=== PATIENT | female | born 1980 | race Caucasian/White ===

== ENCOUNTER 2024-02-20 12:55 | Outpatient (CLI) | payer OTHER, SELFPAY ==
[2024-02-20 13:38] LABS: Hematocrit 38.1 % (37.0-47.0)
== END 2024-02-20 12:56 | disposition home or self-care (01) ==
LOC: ANHSURGERY 13:03
PROVIDERS: Anesthesiology; PCP Nurse Practitioner Family; Visit Provider Obstetrics & Gynecology
DX: D64.9 Anemia, unspecified (principal); D25.9 Leiomyoma of uterus, unspecified
CPT/HCPCS: 36415; 85014; 85018; 86850; 86900; 86901

== ENCOUNTER 2024-02-24 00:51 | Day surgery (SDC) | payer OTHER, SELFPAY ==
[2024-02-18 13:42] VITALS: BMI 43.0
--- NOTE | 2024-02-18 13:44 | PC.NURSE ---
Report to the Outpatient Waiting Room, entrance under the green pavilion located off [facility], at time _0700_ on date _[id number]_. Planned Procedure Time: _0900_. Time changes happen often and if your time is changed the preop area will call you the afternoon before. - You and your visitor will be asked to self-screen and do not enter if you have any COVID symptoms. - A mask is optional within the hospital at this time. Patients may have clear liquids (water, carbonated beverages, clear teas, apple juice) until 3 hours prior to surgery with a maximum of 20 ounces. - No food from midnight until time of surgery Take the following medications with a SIP of water the morning of surgery: __None DO NOT STOP ANY OF YOUR OTHER PRESCRIPTION MEDICATIONS PRIOR TO SURGERY ?EXCEPT THE FOLLOWING Medications to discontinue per physician Iron tab Date to take last [id number] Please no make-up, nail vincentian, hairspray, perfume, deodorant, or body powder the day of surgery. No jewelry (including any body piercings) or valuables the day of surgery, leave them at home. Please take a shower or bath the night before, or the morning of, surgery with an antibacterial soap. Wear comfortable, loose fitting clothing. - Jewelry must be removed prior to entering the operating room. Rings and piercings that are not removed may be cut off. - The hospital will not accept responsibility for valuables. - Please leave all valuables, including medications, at home the day of surgery. If you are going home after surgery, a licensed services delivery driver must drive you home. - NO public transportation without another adult if you receive anesthesia. - We recommend that an adult stay with you for 24 hours following discharge. - We also recommend that you do not drive, make important decision, drink alcoholic beverages, or take any drugs that were not prescribed by your health care provider for at least 24 hours after your discharge time. Follow any additional instructions given to you from your surgeon. If you or anyone in your household have experienced Covid symptoms in the past week, please notify your surgeon or the nurse liaison at the phone number below for possible testing. Telephone instructions given to __Melody___and asked if any additional questions and then verbalized understanding. Patient advised to call surgeon office or pre surgery nurse liaison [phone] if any additional questions.
[2024-02-24] VITALS (11 sets, daily range): BP systolic 112–168; BP diastolic 58–82; PULSE 69–108; RESP 12–20; TEMP 36.5–37.3; O2SAT 95–100; BMI 40.9
--- NOTE | 2024-02-24 07:28 | WPDHPUPDATE1 ---
History and Physical Update Update Date/Time: 02/24/24 07:28 History and Physical has been reviewed, including an updated exam of the patient. There are NO changes in the patient's condition. Risks, benefits, and alternatives have been discussed and questions answered. Patient agrees to proceed with procedure.
[2024-02-24] MEDS: ACETAMINOPHEN 500 MG TABLET 1000 MG PO (07:50)
[2024-02-24] MEDS: KETOROLAC 15 MG/ML VIAL (*BKC) IV PUSH (07:50)
--- NOTE | 2024-02-24 08:46 | P.PNAN_ITS ---
Anes - Initial Pre Proc Eval Procedure: Operation Date: 02/24/24 09:00 Proposed Procedures p Total Laparoscopic Hysterectomy with Bilateral Salpingectomy - Cade Francisco MD Date/Time: 02/24/24 08:46 Surgeon: Cade Francisco MD Pre Op Diagnosis: uterine leimyoma Patient Data Age: 43 Gender: F Height: 1.57 m Weight: 101.5 kg Last Vital Signs Temp 36.6 C 02/24/24 08:32 Pulse 69 02/24/24 08:32 Resp 16 02/24/24 08:32 BP 154/66 H 02/24/24 08:32 Pulse Ox 97 02/24/24 08:32 Allergies Allergy/AdvReac Type Severity Reaction Status Date / Time No Known Allergies Allergy Mild Verified 02/24/24 08:09 Home Medications Medication Instructions Recorded Confirmed Type ferrous sulfate 325 mg (65 mg 325 mg PO DAILY 02/18/24 02/24/24 History iron) tablet (FeroSul) norethindrone 1 mg-ethinyl 1 tablet PO DAILY 02/18/24 02/24/24 History estradiol 10 mcg (24)-iron 10 mcg(2) tablet (Lo Loestrin Fe) Patient hx anesthesia problems: none Family hx anesthesia problems: none Results Review: All pre-operative results and documents have been reviewed as part of the pre- operative evaluation. [facility] Past Medical History Medical History Healthy adult Surgical History Surgical History No history of previous surgery Family History Family History Grandparent Diabetes mellitus Social History Social History Smoking status: Never smoker Second hand tobacco smoke exposure: No Alcohol intake: never Living arrangements: with family Gender identity (if verbalized by the patient): Female Spiritual care concerns: No Anes - Eval Final PreProcedure Day of Procedure 02/24/24 08:46 Patient weight: morbidly obese Heart: regular rate and rhythm Lungs: clear to auscultation Airway: Mallampati scale class II Neurological: alert and oriented Last oral intake: >/= 8 hours ASA classification: III Emergent: no Anesthetic plan: proceed Anesthesia type and monitoring: general ETT and standard monitoring Results Review: All pre-operative results and documents have been reviewed as part of the pre-operative evaluation. Informed Consent: The patient's anesthetic plan and its attendant risks and benefits were discussed with the patient/family/POA. Questions were solicited and answers provided to the satisfaction of the patient/family/POA.
[2024-02-24] MEDS: ceFAZolin 2 GM/D5W 50 ML 2 GM/50 ML BAG IVPB (10:30)
[2024-02-24] MEDS: ceFAZolin SODIUM 1 GM VIAL (11:13)
[2024-02-24] MEDS: METHYLENE BLUE 0.5% INJ 10 ML AMPULE IRRIGATION (13:51)
--- NOTE | 2024-02-24 14:28 | W.PM.PROC2 ---
Procedure Note - Detailed Date of Procedure 02/24/24 Pre-op Diagnosis uterine leiomyoma Post-op Diagnosis Other (uterine leiomyoma, rectal laceration) Procedure Performed Laparoscopic repair of rectal laceration Surgeon Moris Ayers, DO Anesthesia General Indications This is a 43-year-old woman who I am called into the OR to evaluate intraoperatively for a potential rectal laceration. She was undergoing laparoscopic hysterectomy with Dr. Francisco. He noticed a rectal injury after removing the uterus. He did not identify any stool spillage or any definite full thickness injury but he was concerned that there is at least an injury to the serosa and mucosal layers. Findings I inspected the pelvis laparoscopically. The uterus was already surgically absent and the vaginal cuff had been closed. The rectum was identified and carefully inspected. Along the left anterior surface of the mid rectum there appeared to be a serosal injury with some exposed mucosal layer. I did not see any evidence of full-thickness injury or stool spillage. I carefully inspected the upper rectum and distal sigmoid colon as well and did not identify any other injuries. I chose to repair the laceration on the rectum using 3-0 Vicryl seromuscular imbricating sutures. A total of 2 sutures were placed and the repair appeared secure. I attempted rigid proctoscopy to perform a leak check, but the rectum was filled with stool and I was unable to adequately insufflate to check for any signs of an air leak. Please refer to Dr. Francisco's operative report for details of his portion of the procedure. Description of Procedure Patient was evaluated intraoperatively. Consent was assumed based on the nature of the procedure. The patient was in steep Trendelenburg position with laparoscopic ports already in place. I inspected the pelvis laparoscopically and paid particular attention to the rectum as it went down into the pelvis. Along the left anterior side of the rectum there did appear to be a serosal and mucosal injury. This measured about 5 mm wide. There did not appear to be any intraluminal entrance or any signs of stool spillage. No other injuries were noted with careful inspection laparoscopically. I then repaired the rectal laceration using 3-0 Vicryl seromuscular imbricating sutures placed laparoscopically using a laparoscopic needle miniature train driver. Two sutures were placed to approximate the laceration. The repair was then inspected and appeared secure. No other abnormalities were noted. I then filled the pelvis with saline and inserted a rigid proctoscope. Stool was visible as soon as the proctoscope was inserted. I attempted insufflating the rectum with air through the rigid proctoscope, but due to the amount of stool this was difficult to accomplish. The proctoscope was then removed. The saline was then suctioned and the pelvis was inspected 1 final time. No other abnormalities were noted. Please refer to Dr. Francisco's operative report for his portion of the surgery and closure. Estimated Blood Loss 1 Complications No immediate complications Condition Stable Disposition Floor [facility] Billing Surgery - Charge Forward: Surgery Billing
--- NOTE | 2024-02-24 15:03 | W.PM.PROC2 ---
Procedure Note - Detailed Date of Procedure 02/24/24 Pre-op Diagnosis uterine leimyoma, menorrhagia Post-op Diagnosis Same Procedure Performed Total laparoscopic hysterectomy.Bilateral salpingectomy Surgeon Cade Francisco MD Anesthesia General Indications menorrhagia Findings very large uterus with multiple uterine fibroids weighing approximately 800 g. Normal-appearing tubes and ovaries. 2 cm injury to the rectum the removal of the serosa and partial muscularis. Description of Procedure This patient was taken to the operating room. She was prepped and draped in the dorsal lithotomy position after induction of general anesthesia. The uterine manipulator and Sy cup were placed. This was done with a speculum and tenaculum. The speculum was placed. The cervix was grasped with a tenaculum. The stay sutures were placed at 3 and 9:00 a.m.. The stay sutures of 0 Vicryl were brought through the appropriately sized Sy cup. The tip of the PAMELA manipulator was placed in the intrauterine cavity. The cup was slid into place around the cervix and into the fornices. It was locked into place. The sutures were then wrapped around the handle and tied under tension. A 5 mm skin incision was made in the left upper quadrant the abdomen. A 5 mm trocar was inserted into the intrauterine cavity under direct visualization of the scope. Pneumoperitoneum was achieved. A left lower quadrant 11 mm incision was made with scalpel. An 11 mm trocar was inserted into the anterior abdominal cavity under direct visualization the scope. A 5 mm infraumbilical incision was made with a scalpel and a 5 mm trocar was inserted the intra-abdominal cavity under direct visualization of the scope. Left side ureteral lysis was performed. This was done from the pelvic brim down to the uterine artery. This was done with careful dissection using sharp and blunt dissection. The fallopian tubes were removed bilaterally. The mesosalpinx around the fallopian tubes were cauterized transected with LigaSure cautery. This was done in a bilateral fashion from the ovary to the uterine cornua. The fallopian tube was transected at the uterine cornu and amputated bilaterally. The tube was taken out the left lower quadrant trocar site. In a stepwise fashion along the lateral aspects of the uterus the round ligament and broad ligaments were cauterized transected down to the level of the uterine arteries. A bladder flap was created in the bladder was moved distally to the end of the cervix and over the Sy cup. The bilateral uterine arteries were cauterized and transected. Colpotomy was then performed. In a circumferential fashion the vagina was transected using unipolar cautery. The incision was made down on the Sy cup. when the colpotomy was completed. A pneumo occluder was placed in the vagina. the large uterus was cut into 3 pieces using unipolar cautery. A 4th trocar was placed on the patient's right side in left lower quadrant. this is used to apply traction to the very large uterus was cut with unipolar cautery. The dental assistant teacher pushed piece of the uterus down to the vaginal cuff they were grasped with a tenaculum. For 1 of the pieces the rectum was also pushed to the opening. It was superficially grasped with a tenaculum. It was then let go. the remainder of the uterus was removed. Pneumo occluder was replaced. The vaginal cuff was closed with a 0 V lock suture in a running fashion. The pelvis was irrigated with copious amounts antibiotic irrigation. The ureters were again examined and found to be intact and flowing freely under the uterine arteries into the bladder. The bladder was intact. It was examined directly. The rectum was examined. The defect was observed. Dr. Hallman was called for repair. See his note. It required 2 sutures. The rectum was then checked for integrity with proctoscope and air test. No Air passed out of the rectum. Cystoscopy was pe
[2024-02-24] MEDS: LACTATED RINGERS 1,000 ML 30 ML IV CONT ×3 (15:10)
[2024-02-24] MEDS: fentaNYL CITRATE INJ (*CRX) 100 MCG/2 ML VIAL 25 MCG IV PUSH ×2 (15:47→15:50)
--- NOTE | 2024-02-24 16:45 | PC.NURSE ---
This patient, Melody Looney, was received from PACU on 02/24/24 at 1645. Patient/family oriented to unit policies and routines
[2024-02-24] MEDS: DEXTROSE 5%/0.45% SOD CHL 1,000 ML 125 ML IV CONT (16:49)
[2024-02-24] MEDS: KETOROLAC 30 MG/ML VIAL (*BKC) IV PUSH ×2 (17:14→23:33)
[2024-02-24] MEDS: SIMETHICONE 80 MG TAB.CHEW PO ×2 (17:15→21:09)
[2024-02-25 03:20] VITALS: BP 137/71; PULSE 88; RESP 18; TEMP 37.1; O2SAT 96
--- NOTE | 2024-02-25 07:38 | PM.GYNPNOP ---
POLISHING MACHINE TENDER - A/P Postoperative Procedures: Procedures Operation Date: 02/24/24 09:00 Actual Procedure Side Surgeon p Total Laparoscopic Hysterectomy with Bilateral Salpingectomy Bilateral Cade Francisco MD s Laparoscopic Repair of Rectal Laceration Not Applicable Moris Ayers DO Postoperative day: 1 Postoperative status: doing well Postoperative plan: see orders Time Spent With Patient Time: Total time spent is greater than 50% in coordination of care (as documented) at patient's floor/unit and/or counseling patient: Time with patient: less than 15 minutes POLISHING MACHINE TENDER- PN:Subj Post-Op Subjective Date/time seen: 02/25/24 07:38 Subjective: patient reports feeling better, patient has no complaints and pain is well controlled Exam Const: General: cooperative, healthy appearing, comfortable and no acute distress Resp: Auscultation: no crackles, no rales, no rhonchi and no wheezes Cardio: Rate: regular rate Rhythm: regular rhythm Heart sounds: no click and no murmurs GI: Inspection: non-distended Auscultation: normal bowel sounds Extrem: General: normal to inspection, no pedal edema and no calf tenderness POLISHING MACHINE TENDER - PN: Obj Data Vital Signs Vital Signs: Vital Signs - 24 hr 02/24/24 08:32 02/24/24 15:10 02/24/24 15:25 Temperature 97.8 F 98.1 F Pulse Rate 69 108 H 93 Respiratory Rate 16 15 12 Blood Pressure 154/66 H 168/82 H 146/69 H Pulse Oximetry 97 100 100 Oxygen Delivery Simple Face Mask Simple Face Mask Oxygen Flow Rate 10 10 02/24/24 15:40 02/24/24 15:50 02/24/24 15:55 Temperature Pulse Rate 89 90 Respiratory Rate 15 14 Blood Pressure 143/77 H 131/58 L Pulse Oximetry 100 97 95 Oxygen Delivery Simple Face Mask Room Air Room Air Oxygen Flow Rate 10 02/24/24 16:10 02/24/24 16:25 02/24/24 16:55 Temperature 97.7 F Pulse Rate 83 78 81 Respiratory Rate 12 12 16 Blood Pressure 126/72 112/79 123/64 Pulse Oximetry 96 95 97 Oxygen Delivery Room Air Room Air Oxygen Flow Rate 02/24/24 19:45 02/24/24 23:25 02/25/24 03:20 Temperature 98.1 F 99.1 F 98.8 F Pulse Rate 84 79 88 Respiratory Rate 18 20 18 Blood Pressure 121/65 136/70 137/71 Pulse Oximetry 98 99 96 Oxygen Delivery Oxygen Flow Rate Intake/Output Intake/Output: Intake & Output 02/22/24 02/23/24 02/24/24 02/25/24 23:59 23:59 23:59 23:59 Intake Total 250 1000 Output Total 150 1550 Balance 100 -550 Meds/Results Medications: Active Medications Generic Name Dose Route Start Last Admin Trade Name Freq PRN Reason Stop Dose Admin Hydrocodone Bitart/Acetaminophen 1 tab 02/24/24 16:36 Hydrocodone/Acetaminophen (*Crx) 5-325 Mg Tablet PO Q3H PRN Pain Rated 5 or Less Hydrocodone Bitart/Acetaminophen 1 tab 02/24/24 16:36 Hydrocodone/Acetaminophen (*Crx) 10-325 Mg Tablet PO Q3H PRN Pain Rated 6 or Greater Enoxaparin Sodium 40 mg 02/25/24 09:00 Enoxaparin 40 Mg/0.4 Ml Syringe SUB-Q DAILY RIVERA Ibuprofen 600 mg 02/24/24 16:36 Ibuprofen 600 Mg Tablet PO Q6H PRN Cramping Ketorolac Tromethamine 30 mg 02/24/24 16:36 02/24/24 23:33 Ketorolac 30 Mg/Ml Vial (*Bkc) IV PUSH 02/29/24 16:35 30 mg Q6H PRN Administration Pain Rated 4-6 Naloxone HCl 0.1 mg 02/24/24 16:36 Naloxone Hcl 0.4 Mg/Ml Vial IV PUSH Q2M PRN Respiratory rate less than 10 Ondansetron HCl 4 mg 02/24/24 16:36 Ondansetron Inj 4 Mg/2 Ml Vial IV PUSH Q6H PRN Nausea And Vomiting Simethicone 80 mg 02/24/24 17:00 02/24/24 21:09 Simethicone 80 Mg Tab.Chew PO 80 mg TIDWM RIVERA Administration
[2024-02-25] MEDS: IBUPROFEN 600 MG TABLET PO (07:43)
[2024-02-25 08:45] VITALS: BP 140/59; PULSE 76; RESP 16; TEMP 37.1; O2SAT 98
[2024-02-25] MEDS: ENOXAPARIN 40 MG/0.4 ML SYRINGE SUB-Q (08:58)
== END 2024-02-25 11:10 | disposition home or self-care (01) ==
LOC: ANHSURGERY 06:49 → ANHOB2 16:38
PROVIDERS: Surgery; PCP Nurse Practitioner Family; Visit Provider Obstetrics & Gynecology
PROC: 0UT9FZZ Resection of Uterus, Via Natural or Artificial Opening With Percutaneous Endoscopic Assistance (ICD-10-PCS; CPT 58573; principal; 2024-02-24 09:00)
PROC: (CPT 45999; 2024-02-24 09:00)
DX: N83.8 Other noninflammatory disorders of ovary, fallopian tube and broad ligament (principal); D25.9 Leiomyoma of uterus, unspecified; D64.9 Anemia, unspecified; E66.01 Morbid (severe) obesity due to excess calories; Z68.41 Body mass index [BMI] 40.0-44.9, adult; Z98.51 Tubal ligation status; Z80.1 Family history of malignant neoplasm of trachea, bronchus and lung
CPT/HCPCS: 58573; 45999; 88307; 99199; A9270; J0690; J1100; J1170; J1650; J1885; J1940; J2250; J2405; J2704; J3010; J7030; J7120; Q9968

== ENCOUNTER 2024-03-03 19:10 | Inpatient (IN) | payer OTHER, SELFPAY ==
--- NOTE | ~2024-03-03 | CT_ITS ---
EXAMINATION: CT pelvis w con DATE: 03/08/2024 13:45 INDICATION: Pelvic abscess TECHNIQUE: Computed tomography (CT) of the pelvis was performed without with 100 mL Omnipaque-350 int ravenous contrast. Automated exposure control and iterative reconstruction technique were employed.Th e dose-length product was 154.80 mGy-cm. Imaging was performed initially a field engineer for a planned percut aneous abscess drain placement. Following review of the images the planned abscess drainage catheter was canceled due to interval resolution of the prior pelvic abscess. COMPARISON: 03/06/2024 FINDINGS: Bladder is normal. The uterus has been resected. The previous noted pelvic abscess at the uterine fos sa which measured 4.6 x 1.9 x 3.7 cm on 03/03/2024 and 4.1 x 1.8 x 3.5 cm on 03/06/2024 has nearly comple tely resolved currently measuring 11 x 10 x 10 mm. No other abscesses, free intraperineal gas or flui d identified. Visualized portions of the bowels are normal with no obstruction. No pathologically enl arged pelvic or inguinal lymphadenopathy. Bones are unremarkable. IMPRESSION: 1. Near complete resolution of a prior pelvic abscess at the uterine fossa now measuring 11 mm in max imal diameter. Given the significant improvement and current diminutive size of the remaining cavity the planned drainage catheter placement was deferred. Reviewed, dictated and finalized at location A. IMPRESSION: 1. Near complete resolution of a prior pelvic abscess at the uterine fossa now measuring 11 mm in maximal diameter. Given the significant improvement and curr ent diminutive size of the remaining cavity the planned drainage catheter place ment was deferred.
--- NOTE | ~2024-03-03 | CT_ITS ---
CT abdomen pelvis w con Ordering provider: Bhupendra Card MD History: 44 years Female with . ABd pain, r/o SBO . Comparison: August 18, 2019 Technique: CT abdomen and pelvis with IV and without oral contrast. Automated exposure control and it erative reconstruction technique were employed. The dose-length product was 1420.01 mGy-cm. 100 mL Om nipaque 350 was given IV. Findings: VISUALIZED LOWER CHEST: Normal. UPPER ABDOMINAL ORGANS: Liver: Normal. Gallbladder: Normal. Spleen: Normal. Stomach/duodenum: Normal. Pancreas: Normal. Adrenals: Normal. Kidneys: Normal. PELVIC ORGANS: The bladder is underfilled. Surrounding fat stranding seen with thickened wall. BOWEL AND MESENTERY: Colon: Fat stranding in the pelvis with collection in the pelvis which measures 4.6 x 1.9 CNM. Which is most likely post diverticulitis. The appendix is not demonstrated. Small Bowel: Normal. No obstruction. Peritoneum/mesentery: No free air. No mesenteric lymphadenopathy. RETROPERITONEUM: Normal aorta. No retroperitoneal lymphadenopathy. MUSCULOSKELETAL: Superficial soft tissues: The superficial soft tissues are normal. Bones: Normal spine. IMPRESSION: 1. Highly suggestive sigmoid diverticulitis with abscess seen in the pelvis. 2. Thickened wall of the urinary bladder with cystitis. Reviewed, dictated and finalized at location A.
--- NOTE | ~2024-03-03 | XR_ITS ---
EXAMINATION: XR abdomen obstructive series DATE: 03/05/2024 10:11 INDICATION: Constipation. TECHNIQUE: Upright and supine views of the abdomen on 4 radiographs were obtained. COMPARISON: CT abdomen and pelvis 03/03/2024 FINDINGS: There are no dilated loops of bowel. There is a paucity of stool in the colon. No free intr aperitoneal gas. There are phleboliths in the pelvis. IMPRESSION: 1. Normal bowel gas pattern. Reviewed, dictated and finalized at location A.
--- NOTE | ~2024-03-03 | CT_ITS ---
EXAMINATION: CT abdomen pelvis w con DATE: 03/06/2024 14:47 INDICATION: possible pelvic abscess; bacteremic TECHNIQUE: Computed tomography (CT) of the abdomen and pelvis was performed with 100 mL Omnipaque-350 intravenous contrast. Automated exposure control and iterative reconstruction technique were employe d. The dose-length product was 1358.25 mGy-cm. COMPARISON: 03/03/2024. FINDINGS: Lower thorax: Unremarkable Liver: Normal. Biliary/Gallbladder: Gallbladder is normal. No bile duct dilation. Pancreas: No mass or duct dilation. Spleen: Normal. Adrenals:No mass. Kidneys: No suspicious mass, obstructing stone, or hydronephrosis. Subcentimeter right renal hypodens ities, too small to characterize, but most likely represent cysts. GI tract: No small or large bowel dilation. Appendix not visualized. Mesentery/Peritoneum: No ascites, mass, or free air. Retroperitoneum: No mass. Pelvis: The urinary bladder is empty, with moderate surrounding inflammatory change. Irregular slight ly bilobed appearing 4.4 x 5.6 cm rim-enhancing fluid collection at the vaginal cuff, marginally decr eased surrounding inflammatory change and very slight decrease in size since the prior study by my me asurements. Soft Tissues: Soft tissues and body wall unremarkable. Bones: No acute osseous finding. IMPRESSION: Pelvic abscess, very slight interval decrease in size and decreased inflammation, otherwise unchanged . Cystitis versus reactive change in the urinary bladder. No other acute abdominopelvic process. Reviewed, dictated and finalized at location K. IMPRESSION: Pelvic abscess, very slight interval decrease in size and decreased inflammatio n, otherwise unchanged. Cystitis versus reactive change in the urinary bladder. No other acute abdominopelvic process.
--- NOTE | ~2024-03-03 | US_ITS ---
EXAMINATION: US venous doppler [facility] DATE: 03/05/2024 14:56 INDICATION: Lower limb pain with positive Homans sign post recent surgery TECHNIQUE: Grayscale ultrasound images without and with compression and Doppler ultrasound images of the bilateral lower extremity veins were obtained. COMPARISON: None. FINDINGS: The visualized portions of right common femoral vein, profunda (deep) femoral vein, femoral vein, pop liteal vein, posterior tibial veins, peroneal veins, gastrocnemius vein and greater saphenous vein ou tflow are patent. The visualized portions of left common femoral vein, profunda femoral vein, femoral vein, popliteal v ein, posterior tibial veins, peroneal veins, gastrocnemius vein and greater saphenous vein outflow ar e patent. IMPRESSION: 1. No deep venous thrombosis in either lower limb. Reviewed, dictated and finalized at location B.
[2024-03-03 19:11] VITALS: BP 147/80; PULSE 110; RESP 16; TEMP 36.4; O2SAT 95
[2024-03-03 20:56] LABS: Basophils Absolute Auto 0.1 K/mm3 (0.0-0.1); Basophils Percent Auto 0.4 % (0.2-1.2); Eosinophils Percent Auto 0.2 % (0-4.4); Hematocrit 37.5 % (37.0-47.0); Hemoglobin 13.3 g/dL (12.0-15.0); Immature Granulocyte Absolute 0.05 K/mm3 (0.00-0.031); Immature Granulocyte Percent A 0.4 % (0-0.5); Lymphocytes Absolute Auto 1.36 K/mm3 (0.9-3.2); Lymphocytes Percent Auto 11.3 % (18.3-44.2); Mean Corpuscular HGB Conc 35.5 g/dl (32-36); Mean Corpuscular Hemoglobin 31.9 pg (26-34); Mean Corpuscular Volume 89.9 fl (80-100); Mean Platelet Volume 9.6 fl (7.4-10.4); Monocytes Absolute Auto 1.6 K/mm3 (0.1-0.6); Neutrophils Percent Auto 74.7 % (45.5-73.1); Platelet Count Result 318 k/mm3 (150-375); Red Blood Count 4.17 M/mm3 (4.2-5.4); Red Cell Distribution Width 12.2 % (11.5-14.5)
--- NOTE | 2024-03-03 21:00 | ED.ABDPAIN ---
HPI - Abdominal Pain General Chief Complaint: Abdominal Pain <IWONA Sewell Last Filed: 03/04/24 00:11> Stated Complaint: constipation <IWONA Sewell Last Filed: 03/04/24 00:11> Time Seen by Provider: 03/03/24 20:38 <IWONA Sewell Last Filed: 03/04/24 00:11> Source: patient and old records reviewed <IWONA Sewell Last Filed: 03/04/24 00:11> Mode of arrival: ambulatory <IWONA Sewell Filed: 03/04/24 00:11> Limitations: no limitations <IWONA Sewell Last Filed: 03/04/24 00:11> History of Present Illness HPI narrative: Patient is a 44 y/o female who presents to the ED with c/o abdominal pain and constipation. Patient reports she underwent hysterectomy with Dr. Francisco on 02/23. Complicated by rectal laceration, repaired in the OR by Dr. Ayers. Patient reports since her surgery, she has not had a bowel movement. She is not currently on any opioid pain medication. Unclear of when her last bowel movement actually was. She has been taking milk of magnesia, but denies improvement. Reports only watery discharge from her anus. Reports intermittent lower abdominal pain, lower back pain, nausea with eating, denies vomiting. Denies fevers. She does report mild dysuria and burning in her vagina with urination. She believes she may have UTI. <IWONA Sewell Last Filed: 03/04/24 00:11> Related Data Home Medications: Home Medications Medication Instructions Recorded Confirmed No Home Medications 03/03/24 03/03/24 <IWONA Sewell Last Filed: 03/04/24 00:11> Allergies/Adverse Reactions: Allergies Allergy/AdvReac Type Severity Reaction Status Date / Time No Known Allergies Allergy Mild Verified 03/03/24 19:11 <IWONA Sewell Last Filed: 03/04/24 00:11> Review of Systems Review of Systems: CONSTITUTIONAL: Denies fever, chills, or sweats. GASTROINTESTINAL: See HPI GENITOURINARY: See HPI MSK: See HPI <Isha Muñoz PA-C - Last Filed: 03/04/24 00:11> All systems reviewed & are unremarkable except as noted in HPI and below <Isha Muñoz PA-C - Last Filed: 03/04/24 00:11> [facility] Past Medical History Medical History: Medical History Healthy adult <Isha Muñoz PA-C - Last Filed: 03/04/24 00:11> Surgical History Surgical History: Surgical History No history of previous surgery <Isha Muñoz PA-C - Last Filed: 03/04/24 00:11> Family History Family History: Family History Grandparent Diabetes mellitus <Isha Muñoz PA-C - Last Filed: 03/04/24 00:11> Social History Social History: Social History Smoking status: Never smoker Second hand tobacco smoke exposure: No Alcohol intake: never Substance use type: does not use Do You Feel Safe in your Home?: Yes Lack of Transportation: No Lack of Food: Never True Current Housing: I Have Housing Concerned About Future Housing: No Difficulty Paying Gas/Electric Bills: No Difficulty Paying for Meds: No Currently Unemployed: No Education: Don't Know Difficulty w/ Childcare or Family Care: No Living arrangements: with family Gender identity (if verbalized by the patient): Female Spiritual care concerns: No <Isha Muñoz PA-C - Last Filed: 03/04/24 00:11> Exam Narrative: GENERAL: Well appearing, morbidly obese with BMI 40.0, non-toxic, in no acute distress. HEAD: Normocephalic, atraumatic. RESPIRATORY: Airway patent, respirations nonlabored. Clear to auscultation bilaterally, no rales, rhonchi, wheezing. CARDIOVASCULAR: Regular rate and rh
[2024-03-03 21:06] LABS: Alanine Aminotransferase 29 U/L (6-35); Albumin Level 4.5 g/dL (3.5-5.1); Alkaline Phosphatase 78 U/L (38-126); Anion Gap 9 mmol/L (4-12); Aspartate Amino Transferase 21 U/L (14-36); Bilirubin,Total 0.8 mg/dL (0.2-1.3); Blood Urea Nitrogen 9 mg/dL (7-17); Calcium 9.3 mg/dL (8.4-10.2); Carbon Dioxide 25 mmol/L (22-30); Chloride 102 mmol/L (98-107); Estimated CRCL calculation 95 ml/min; Estimated Glomerular Filt Rate > 60; Glucose 122 mg/dL (65-110); Lipase 26 U/L (23-300); Magnesium 2.2 mg/dL (1.6-2.3); Potassium 3.9 mmol/L (3.4-5.0); Sodium 136 mmol/L (137-145)
[2024-03-03 21:07] LABS: Lactic Acid Reflex 0.9 mmol/L (0.7-2.0)
[2024-03-03] MEDS: SODIUM CHLORIDE 0.9% IV 1,000 ML 999 ML IV CONT ×2 (21:11→22:52)
[2024-03-03 21:32] VITALS: BP 149/75; PULSE 96; RESP 15; O2SAT 98
[2024-03-03 22:04] LABS: Appearance Urine Turbid (Clear); Bacteria Urine 4+ /hpf; Bilirubin Urine 1+ (Negative); Blood Urine 3+ (Negative); Color Urine Dark Yellow (Yellow); Glucose Urine UA Negative (Negative); Ketones Urine Trace mg/dL (Negative); Leukocyte Esterase Ur 2+ LEU/UL (Negative); Need Manual Microscopic Reviewed; Nitrate Urine Negative (Negative); Protein Urine 3+ mg/dL (Negative); RBC Urine >100 /hpf (0-2); Specific Grav Ur 1.028 (1.001-1.035); Squamous Epithelial Cell Urine Moderate /hpf (Few); Urobilinogen Urine 0.2 mg/dL (<2.0); WBC Urine >100 /hpf (0-3); pH Urine 5.5 (5.0-9.0)
[2024-03-03 22:13] LABS: Add Urine Microscopic? YES
[2024-03-03] MEDS: PIPERACILLN/TAZ 3.375GM/NS50ML 3.375 GM/50 ML BAG IVPB (22:52)
[2024-03-03 23:27] VITALS: BP 137/80; PULSE 88; RESP 15; O2SAT 100
[2024-03-03 23:42] VITALS: BMI 39.9
[2024-03-03 23:44] VITALS: BP 163/72; PULSE 93; RESP 16; TEMP 37; O2SAT 100; BMI 41.1
--- NOTE | 2024-03-03 23:49 | ADMGEN ---
This patient, Melody Looney, was admitted to [facility] Surg Room 303-01. Patient/family oriented to hospital policies and general routines including ID bracelet, bed and alarms, visiting hours, pain management, procedures, bathroom and other care routines, personal items, smoking policy, room service/diet, and visiting hours. Information on how to activate the Rapid Response Team has been discussed. Patient/Family are encouraged to report perceived risks to care and to ask questions if they do not understand what they are told or what they should do.
[2024-03-04] MEDS: SODIUM CHLORIDE 0.9% IV 1,000 ML 100 ML IV CONT ×3 (00:09→22:20)
[2024-03-04] MEDS: PIPERACILLN/TAZ 3.375GM/NS50ML 3.375 GM/50 ML BAG IVPB ×4 (05:44→23:45)
[2024-03-04 05:47] VITALS: BP 129/57; PULSE 100; RESP 14; TEMP 37.5; O2SAT 96
[2024-03-04 06:07] LABS: Basophils Percent Auto 0.3 % (0.2-1.2); Eosinophils Percent Auto 0.4 % (0-4.4); Hematocrit 33.2 % (37.0-47.0); Immature Granulocyte Absolute 0.04 K/mm3 (0.00-0.031); Immature Granulocyte Percent A 0.4 % (0-0.5); Lymphocytes Absolute Auto 1.05 K/mm3 (0.9-3.2); Lymphocytes Percent Auto 11.1 % (18.3-44.2); Mean Corpuscular HGB Conc 33.1 g/dl (32-36); Mean Corpuscular Volume 93.5 fl (80-100); Mean Platelet Volume 9.8 fl (7.4-10.4); Monocytes Absolute Auto 1.3 K/mm3 (0.1-0.6); Neutrophils Percent Auto 73.8 % (45.5-73.1); Platelet Count Result 263 k/mm3 (150-375); Red Blood Count 3.55 M/mm3 (4.2-5.4); Red Cell Distribution Width 12.2 % (11.5-14.5); White Blood Count 9.4 K/mm3 (4.5-10.0)
[2024-03-04 06:17] LABS: Lactic Acid Reflex 0.7 mmol/L (0.7-2.0)
[2024-03-04 06:19] LABS: Anion Gap 9 mmol/L (4-12); Blood Urea Nitrogen 7 mg/dL (7-17); Calcium 8.1 mg/dL (8.4-10.2); Carbon Dioxide 22 mmol/L (22-30); Chloride 105 mmol/L (98-107); Estimated CRCL calculation 111 ml/min; Estimated Glomerular Filt Rate > 60; Glucose 108 mg/dL (65-110); Magnesium 1.9 mg/dL (1.6-2.3); Potassium 3.6 mmol/L (3.4-5.0); Sodium 136 mmol/L (137-145)
[2024-03-04 06:43] LABS: Procalcitonin 0.1 ng/mL
--- NOTE | 2024-03-04 08:48 | PM.IMHP ---
H&P: HPI History of Present Illness Date/Time: 03/04/24 08:48 Chief Complaint: Constipation Narrative: Melody Looney is a 44-year-old healthy female with history of uterine fibroids who underwent total laparoscopic hysterectomy with bilateral salpingectomy on 02/24/[address] Francisco. The procedure was complicated by rectal laceration and patient underwent intraoperative laparoscopic rectal laceration repair by Dr. Ayers. She tolerated this procedure well and was discharged home on 02/25/2024. Her pain was well controlled and she states that she did not require any of the oxycodone that she was prescribed for analgesics. She did notice about 4-5 days later, she had not had a bowel movement whatsoever. She was developing nausea and abdominal pressure with eating. She took a dose of milk of magnesia and only had a small amount of completely liquid yellow stool. A few days later, she developed severe central low back pain which she rated 10/10 with associated nausea and rectal pressure. She drank a bottle of magnesium citrate and only had a scant amount of loose, watery stool following this. She felt that she had hard stool that was stuck in the rectum and was leaking liquid stools around this. She had abdominal pressure associated with this. Denied fever, chills, or vomiting. She was concerned that she might have developed a blockage, therefore presented to the emergency department on 03/03/2024. Upon arrival, she was mildly tachycardic with additional vital signs stable, WBC within normal limits at 9.4, H&H slightly decreased, 11.0 and 33.2 respectively, electrolytes within normal limits, lipase within normal limits, lactic within normal limits, UA grossly abnormal concerning for infection. A CT of her abdomen/pelvis was completed which showed findings highly consistent with acute sigmoid diverticulitis with pelvic abscess as well as cystitis. At the time of my evaluation, the patient is feeling about the same. She is still having abdominal and back pressure and has not had any stools. She does complain of headache which she attributes to the stress of her situation. She also reports onset of vaginal burning that is improved with an ice pack as well as dysuria and dark brown urine. She denies any episodes of hematuria. She denies hematochezia or melena, though notes that yesterday she had a very faint red streak in the toilet after trying to have a bowel movement. She states that she has been overall recovering well from her surgery and denies any incisional pain. She has been tolerating her diet for the most part. She admits to poor water intake overall. Review of Systems Review of Systems: All systems reviewed & are unremarkable except as noted in HPI and below PMFSH Past Medical History Medical History (Updated 03/04/24 @ 09:03 by Anne Cardenas PA-C) Healthy adult Leiomyoma Surgical History Surgical History (Updated 03/04/24 @ 08:58 by Anne Cardenas PA-C) History of hysterectomy (~03/2024) Family History Family History Grandparent Diabetes mellitus Social History Social History (Updated 03/04/24 @ 08:59 by Anne Cardenas PA-C) Social History: Lives at home with her , Phillip who is her surrogate decision maker. PCP is Dr. Hicks Smoking status: Never smoker Second hand tobacco smoke exposure: No Alcohol intake: never Substance use type: does not use Do You Feel Safe in your Home?: Yes Lack of Transportation: No Lack of Food: Never True Current Housing: I Have Housing Concerned About Future Housing: No Difficulty Paying Gas/Electric Bills: No Difficulty Paying for Meds: No Currently Unemployed: No Education: Don't Know Difficulty w/ Childcare or Family Care: No Living arrangements: with family Gender identity (if verbalized by the patient): Female Spiritual care concerns: No Meds Home Medications
[2024-03-04] MEDS: PANTOPRAZOLE SODIUM IV 40 MG VIAL IV PUSH (09:15)
--- NOTE | 2024-03-04 10:55 | WPDCN ---
Assessment and Plan Assessment and plan (1) Intra-abdominal abscess post-procedure: Code(s): T81.43XA - Infection following a procedure, organ and space surgical site, initial encounter; K65.1 - Peritoneal abscess Status: Acute Assessment and Plan: I think is difficult to definitively say that the fluid collection in the pelvis is definitely an abscess given her recent surgery 9 days a hysterectomy. Still the difference between diverticulitis and postsurgical changes with a small fluid collection. The fluid collection may be infected but presently is not has not have a rim enhancing wall to suggest an abscess. For now will continue to treat with IV antibiotics and NPO status. Clinically she does not look to be septic. If she continues to get worse in any way then repeat CT scan possible IR drainage of the fluid collection would be reasonable. Continue expectant management for now. HPI Data of Consult Date/Time: 03/04/24 10:55 Requesting Physician: Olya Mcdaniels MD Primary Care Provider: Arron Hicks, PRINCIPAL LAW CLERK Consult Narrative Reason for consult: Pelvic pain and possible pelvic abscess Narrative: Melody Looney is a 44 year old female who underwent a laparoscopic hysterectomy by Dr. Francisco 9 days ago. There was a serosal tear in the midportion of the right eye partner Dr. Ayers repaired with laparoscopic placement of 2 Vicryl sutures to close the serosal tear. No full-thickness in seen and no spillage of any bowel contents was noted. The patient has had constipation and was unable to have bowel movements. She was having urine pain and in the emergency room she was noted to have with the radiologist called diverticulitis and a 4cm abscess in the pelvis. She was hemodynamically stable and admitted to the hospital and started on IV antibiotics. White blood cell count was initially 12,000 is down to 9000 today. No fever. She has been having some liquid diarrhea which is nonbloody. She took some magnesium citrate yesterday which did not really resulted in a large bowel movements. She has not been eating very much solid food since her surgery. No nausea vomiting home. Review of Systems Review of Systems: The remainder of the review of systems to include constitutional, HEENT, cardiovascular, respiratory, GI, , integumentary, musculoskeletal, endocrine, immunologic, hematologic, psychiatric, and neurologic are all negative except for which is mentioned above in the HPI. [facility] Past Medical History Medical History Healthy adult Leiomyoma Surgical History Surgical History History of hysterectomy (~03/2024) Family History Family History Grandparent Diabetes mellitus Social History Social History Social History: Lives at home with her , Phillip who is her surrogate decision maker. PCP is Dr. Hicks Smoking status: Never smoker Second hand tobacco smoke exposure: No Alcohol intake: never Substance use type: does not use Do You Feel Safe in your Home?: Yes Lack of Transportation: No Lack of Food: Never True Current Housing: I Have Housing Concerned About Future Housing: No Difficulty Paying Gas/Electric Bills: No Difficulty Paying for Meds: No Currently Unemployed: No Education: Don't Know Difficulty w/ Childcare or Family Care: No Living arrangements: with family Gender identity (if verbalized by the patient): Female Spiritual care concerns: No Meds Home Medications and Allergies Home Medications Medication Instructions Recorded Confirmed Type No Home Medications 03/03/24 03/03/24 History Allergies Allergy/AdvReac Type Severity Reaction Status Date / Time No Known Allergies Allergy Mild Verified 03/03/24 19:11 Vital S
--- NOTE | 2024-03-04 11:19 | WPDCN ---
Assessment and Plan Assessment and plan (1) Post-op pain: Code(s): G89.18 - Other acute postprocedural pain Status: Acute (2) Constipation: Code(s): K59.00 - Constipation, unspecified Status: Acute (3) Pelvic fluid collection: Code(s): R18.8 - Other ascites Status: Acute Assessment and Plan: Melody Looney is a 44 year old female Who presented to the emergency department with postoperative pelvic pain and constipation. She feelings of pressure in her rectal area. She is 1 week postop from a total laparoscopic hysterectomy and bilateral salpingectomy. She had a large uterus was taken out in strips. During removal of the strips the rectum was grasped and a serosal and muscularis tear occurred. It was repaired by Dr. Hallman. she was evaluated in the emergency department. CT scan revealed a small fluid collection in the pelvis. There was suggestion of diverticulitis which is difficult to infer in the context of postoperative healing. Patient was afebrile. She had a very little mildly elevated white count initially which resolved after observation. She is being treated with antibiotics. Consideration of CT-guided drainage of the fluid collection or transvaginal drainage of fluid collection and has been discussed between myself and Dr. Nance. Dr. Nance feels that antibiotics and observation probably the best approach at this time. Will continue observation and antibiotic treatment. HPI Data of Consult Date/Time: 03/04/24 11:19 Requesting Physician: Olya Mcdaniels MD Primary Care Provider: Arron Hicks, AEROSPACE ENGINEER Consult Narrative Narrative: Melody Looney is a 44 year old female Who presented to the emergency department with postoperative pelvic pain and constipation. She feelings of pressure in her rectal area. She is 1 week postop from a total laparoscopic hysterectomy and bilateral salpingectomy. She had a large uterus was taken out in strips. During removal of the strips the rectum was grasped and a serosal and muscularis tear occurred. It was repaired by Dr. Hallman. she was evaluated in the emergency department. CT scan revealed a small fluid collection in the pelvis. There was suggestion of diverticulitis which is difficult to infer in the context of postoperative healing. Patient was afebrile. She had a very little mildly elevated white count initially which resolved after observation. She is being treated with antibiotics. Consideration of CT-guided drainage of the fluid collection or transvaginal drainage of fluid collection and has been discussed between myself and Dr. Nance. Dr. Nance feels that antibiotics and observation probably the best approach at this time. Will continue observation and antibiotic treatment. Review of Systems Review of Systems: All systems reviewed & are unremarkable except as noted in HPI and below Constitutional: Constitutional: Denies chills, Denies fatigue, Denies fever(s) and Denies weakness Eyes: Eyes: Denies blurry vision, Denies change in vision, Denies loss of peripheral vision, Denies loss of vision, Denies other visual disturbances and Denies eye pain ENT: Denies vertigo, Denies dizziness, Denies hearing loss, Denies mouth pain, Denies nasal obstruction, Denies neck mass and Denies neck pain Cardiovascular: Cardiovascular: Denies chest pain, Denies diaphoresis, Denies syncope, Denies leg edema and Denies dyspnea Respiratory: Respiratory: Denies chest congestion, Denies cough, Denies hemoptysis, Denies dyspnea and Denies wheezing Gastrointestinal: Gastrointestinal: Denies abdominal pain, Denies constipation, Denies diarrhea, Denies nausea and Denies vomiting Genitourinary: Genitourinary: Denies hematuria, Denies change in libido, Denies nocturia, Denies genital lesions, Denies flank pain and Denies urinary urgency Musculoskeletal: Musculoskeletal: Denies abnormal gait, Denies back pain, Denies myalgias, Denies arthralgias, Russell
[2024-03-04 14:00] VITALS: BP 130/61; PULSE 83; RESP 16; TEMP 36.8; O2SAT 99
[2024-03-04 21:51] VITALS: BP 141/60; PULSE 79; RESP 16; TEMP 36.2; O2SAT 98
[2024-03-05] MEDS: PIPERACILLN/TAZ 3.375GM/NS50ML 3.375 GM/50 ML BAG IVPB ×3 (05:03→17:53)
[2024-03-05 05:51] VITALS: BP 149/70; PULSE 80; RESP 14; TEMP 36.1; O2SAT 99
[2024-03-05 07:12] LABS: Hematocrit 33.1 % (37.0-47.0); Mean Corpuscular HGB Conc 33.2 g/dl (32-36); Mean Corpuscular Hemoglobin 31.1 pg (26-34); Mean Corpuscular Volume 93.5 fl (80-100); Mean Platelet Volume 10.4 fl (7.4-10.4); Platelet Count Result 253 k/mm3 (150-375); Red Blood Count 3.54 M/mm3 (4.2-5.4); Red Cell Distribution Width 12.3 % (11.5-14.5); White Blood Count 6.5 K/mm3 (4.5-10.0)
[2024-03-05 07:28] LABS: Anion Gap 11 mmol/L (4-12); Blood Urea Nitrogen 8 mg/dL (7-17); Calcium 8.2 mg/dL (8.4-10.2); Carbon Dioxide 20 mmol/L (22-30); Chloride 106 mmol/L (98-107); Estimated CRCL calculation 111 ml/min; Estimated Glomerular Filt Rate > 60; Glucose 77 mg/dL (65-110); Potassium 3.7 mmol/L (3.4-5.0); Sodium 137 mmol/L (137-145)
[2024-03-05 08:00] VITALS: O2SAT 99
--- NOTE | 2024-03-05 08:08 | PM.PNGS ---
Progress Note: A&P Assessment and Plan (1) Sigmoid diverticulitis: Code(s): K57.32 - Diverticulitis of large intestine without perforation or abscess without bleeding Status: Acute Assessment and Plan: Continue IV antibiotics. Will start clear liquids today. Abdomen X-ray to assess for any further significant constipation. Possibly home in 1-2 days if continuing to improve. (2) Rectal laceration: Qualifiers: Encounter type: subsequent encounter Qualified Code(s): S36.63XD - Laceration of rectum, subsequent encounter Code(s): S36.63XA - Laceration of rectum, initial encounter Status: Acute (3) Pelvic fluid collection: Code(s): R18.8 - Other ascites Status: Acute Assessment and Plan: Most likely surgery related. No full thickness bowel injury noted at time of surgery. Perforated diverticulitis certainly a possibility as well. Will consider repeat imaging if not clinically improving. Subjective Subjective Date/Time Seen: 03/05/24 08:08 Interval history: Pain nearly resolved, just feels some pressure with palpation now. No fevers. Bowels moved, but just small BM's. Exam GI: Inspection: non-distended and obesity GI Palp: Yes Soft to palpation, No Tenderness to palpation present (GI) and No Guarding due to palpation present (GI) Auscultation: normal bowel sounds Objective Data Vital Signs Vital Signs: Vital Signs - 24 hr 03/04/24 09:15 03/04/24 14:00 03/04/24 20:00 Temperature 36.8 C Pulse Rate 83 Respiratory Rate 16 Blood Pressure 130/61 Pulse Oximetry 99 Oxygen Delivery Room Air Room Air 03/04/24 21:51 03/05/24 05:51 Temperature 36.2 C L 36.1 C L Pulse Rate 79 80 Respiratory Rate 16 14 Blood Pressure 141/60 H 149/70 H Pulse Oximetry 98 99 Oxygen Delivery Intake/Output Intake/Output: Intake & Output 03/02/24 03/03/24 03/04/24 03/05/24 23:59 23:59 23:59 23:59 Intake Total 1050 2160 50 Balance 1050 2160 50 Meds/Results Medications: Active Medications Generic Name Dose Route Start Last Admin Trade Name Freq PRN Reason Stop Dose Admin Piperacillin/Tazobactam/Dextrose 3.375 gm in 50 mls @ 100 mls/hr 03/04/24 06:00 03/05/24 05:03 Zosyn 3.375 Gm/Ns 50 Ml IVPB 100 mls/hr Q6H RIVERA Administration Sodium Chloride 1,000 mls @ 100 mls/hr 03/03/24 23:00 03/04/24 22:20 Normal Saline Iv IV CONT 100 mls/hr .Q10H RIVERA Administration Morphine Sulfate 2 mg 03/04/24 01:23 Morphine Sulfate (*Crx) 4 Mg/Ml Inj IV PUSH Q2H PRN Pain Rated 7-10 Ondansetron HCl 4 mg 03/03/24 22:56 Ondansetron Inj 4 Mg/2 Ml Vial IV PUSH Q4H PRN Nausea Pantoprazole Sodium 40 mg 03/04/24 09:00 03/04/24 09:15 Pantoprazole Sodium Iv 40 Mg Vial IV PUSH 40 mg QAM RIVERA Administration Polyethylene Glycol 17 gm 03/05/24 09:00 Polyethylene Glycol 3350 17 Gm Powd.Pack PO QAM [facility] Radiology Results: ITS Impressions Abdomen/Pelvis CT 03/03/24 21:31 IMPRESSION: 1. Highly suggestive sigmoid diverticulitis with abscess seen in the pelvis. 2. Thickened wall of the urinary bladder with cystitis. Labs Labs: Laboratory Results - last 24 hr 03/05/24 06:35 WBC 6.5 RBC 3.54 L Hgb 11.0 L Hct 33.1 L MCV 93.5 MCH 31.1 MCHC 33.2 RDW 12.3 Plt Count 253 MPV 10.4 Sodium 137 Potassium 3.7 Chloride 106 Carbon Dioxide 20 L Anion Gap 11 BUN 8 Creatinine 0.60 L Estim Creat Clear Calc 111 Estimated GFR > 60 Glucose 77 Calcium 8.2 L
[2024-03-05] MEDS: polyethylene glycoL 3350 17 GM POWD.PACK PO (09:18)
[2024-03-05] MEDS: PANTOPRAZOLE SODIUM IV 40 MG VIAL IV PUSH (09:18)
[2024-03-05] MEDS: SODIUM CHLORIDE 0.9% IV 1,000 ML 100 ML IV CONT (09:19)
--- NOTE | 2024-03-05 10:03 | PM.GYNPNOP ---
PAPER GOODS MACHINE OPERATOR - A/P Assessment and plan (1) Sigmoid diverticulitis: Code(s): K57.32 - Diverticulitis of large intestine without perforation or abscess without bleeding Status: Acute (2) Constipation: Code(s): K59.00 - Constipation, unspecified Status: Acute Assessment and Plan: insulation extruder operator to continue observation, patient has some additional imaging today, white count is going down, continues to be afebrile, clear liquids per surgery Time Spent With Patient Time: Total time spent is greater than 50% in coordination of care (as documented) at patient's floor/unit and/or counseling patient: Time with patient: 15 - 25 minutes PAPER GOODS MACHINE OPERATOR- PN:Subj Post-Op Subjective Date/time seen: 03/05/24 10:03 Improved pain, less rectal pressure, tolerating p.o. liquids. Denies nausea, vomiting, fever, chills. She denies chest pain shortness of breath. Exam Const: General: cooperative, healthy appearing, comfortable and no acute distress Orientation/consciousness: oriented to person, oriented to place and oriented to time HENMT: Head: normal to inspection Ears: external ears normal Face/Nose/Sinus: Normal external nose present and normal facial exam Face and sinus: normal facial exam Eyes: General: appearance normal, both eyes and all related structures Neck: Neck: normal visual inspection, trachea midline and supple Resp: Auscultation: clear to auscultation bilaterally, no crackles, no rales, no rhonchi and no wheezes Cardio: Rate: regular rate Rhythm: regular rhythm Heart sounds: no click, no murmurs and no rubs GI: GI Palp: No abdominal tenderness, No Soft to palpation, No Tenderness to palpation present (GI) and No Palpable mass present Auscultation: normal bowel sounds Skin: General skin exam: normal color and no rashes or lesions noted Neuro: General: oriented to person, oriented to place and oriented to time Extrem: General: normal to inspection, no joint enlargement, no clubbing, cyanosis or edema, no pedal edema and no calf tenderness Psych: Appearance: grossly normal Mental Status: mental status grossly normal Speech and movement: Normal speech and movement present PAPER GOODS MACHINE OPERATOR - PN: Obj Data Vital Signs Vital Signs: Vital Signs - 24 hr 03/04/24 14:00 03/04/24 20:00 03/04/24 21:51 Temperature 98.2 F 97.2 F L Pulse Rate 83 79 Respiratory Rate 16 16 Blood Pressure 130/61 141/60 H Pulse Oximetry 99 98 Oxygen Delivery Room Air 03/05/24 05:51 Temperature 96.9 F L Pulse Rate 80 Respiratory Rate 14 Blood Pressure 149/70 H Pulse Oximetry 99 Oxygen Delivery Intake/Output Intake/Output: Intake & Output 03/02/24 03/03/24 03/04/24 03/05/24 23:59 23:59 23:59 23:59 Intake Total 1050 2160 1050 Balance 1050 2160 1050 Meds/Results Medications: Active Medications Generic Name Dose Route Start Last Admin Trade Name Freq PRN Reason Stop Dose Admin Piperacillin/Tazobactam/Dextrose 3.375 gm in 50 mls @ 100 mls/hr 03/04/24 06:00 03/05/24 05:03 Zosyn 3.375 Gm/Ns 50 Ml IVPB 100 mls/hr Q6H RIVERA Administration Sodium Chloride 1,000 mls @ 100 mls/hr 03/03/24 23:00 03/05/24 09:19 Normal Saline Iv IV CONT 100 mls/hr .Q10H RIVERA Administration Morphine Sulfate 2 mg 03/04/24 01:23 Morphine Sulfate (*Crx) 4 Mg/Ml Inj IV PUSH Q2H PRN Pain Rated 7-10 Ondansetron HCl 4 mg 03/03/24 22:56 Ondansetron Inj 4 Mg/2 Ml Vial IV PUSH Q4H PRN Nausea Pantoprazole Sodium 40 mg 03/04/24 09:00 03/05/24 09:18 Pantoprazole Sodium Iv 40 Mg Vial IV PUSH 40 mg QAM RIVERA Administration Polyethylene Glycol 17 gm 03/05/24 09:00 03/05/24 09:18 Polyethylene Glycol 3350 17 Gm Powd.Pack PO 17 gm QAM RIVERA Administration Radiology Results: ITS Impressions Abdomen/Pelvis CT 03/03/24 21:31 IMPRESSION: 1. Highly suggestive sigmoid diverticulitis with abscess seen in the pelvis. 2. Thickened wall of the urinary bladder with cystitis.
--- NOTE | 2024-03-05 12:27 | PM.IMPN ---
Progress Note: A&P Assessment and Plan (1) Sigmoid diverticulitis: Code(s): K57.32 - Diverticulitis of large intestine without perforation or abscess without bleeding Status: Acute Assessment and Plan: Patient presents with abdominal pain and found to have an acute sigmoid diverticulitis with pelvic abscess visible on CT. Patient started on empiric IV antibiotics (Zosyn) after appropriate cultures obtained. WBC was normal and remains normal. Blood cultures growing Gram-negative bacilli from 1 anaerobic bottle only. Repeat BCx General surgery and tapper helper consulted. Clinically improved. Continue IV antibiotics. (2) Pelvic fluid collection: Code(s): R18.8 - Other ascites Status: Acute Assessment and Plan: Concerned patient may have a pelvic abscess either related to recent surgery or from perforated diverticulitis. Fluid pocket measures 4.6 x 1.9 cm. Continue IV antibiotics. Appreciate General surgery input (3) History of hysterectomy: Onset Date: ~03/2024 Code(s): Z90.710 - Acquired absence of both cervix and uterus Status: Acute Assessment and Plan: S/p total laparoscopic hysterectomy with bilateral salpingectomy on 02/24/[address] Francisco, who has been consulted. Having calf pain recently. Appreciate recommendations. Gianni check dopplers (4) Rectal laceration: Qualifiers: Encounter type: subsequent encounter Qualified Code(s): S36.63XD - Laceration of rectum, subsequent encounter Code(s): S36.63XA - Laceration of rectum, initial encounter Status: Acute Assessment and Plan: Intraoperative serosal injury on 02/24/2024, s/p laparoscopic repair rectal laceration by Dr. Ayers. As above, General surgery has been consulted recommendations are appreciated. (5) Anemia: Code(s): D64.9 - Anemia, unspecified Status: Acute Assessment and Plan: Mild anemia, likely related to dilutional effect from IV fluids and recent surgery. No evidence of active bleeding. Continue to monitor H&H closely. Was previously on iron supplement due to menorrhagia induced anemia, was discontinued after hysterectomy. (6) UTI (urinary tract infection): Qualifiers: Hematuria presence: with hematuria Urinary tract infection type: acute cystitis Qualified Code(s): N30.01 - Acute cystitis with hematuria Code(s): N39.0 - Urinary tract infection, site not specified Status: Acute Assessment and Plan: UA grossly abnormal, consistent with infection, and patient is symptomatic. Urine cultures however is negative. UTI ruled out. Plan DVT prophylaxis -SCDs, Lovenox Code status -full Subjective Date/time seen: 03/05/24 12:27 Interval history: 44yo female with recent RENATO/BSO 02/23 complicated by rectal laceration s/p intraoperative laparoscopic rectal laceration repair who returns for abdominal pain and found to have diverticulitis and pelvic abscess. Assuming care. Chart reviewed. Patient feeling better. Abdominal pain is improved. Still having small liquid bowel movements. Exam Narrative: AF 96.9 149/70 80 14 99% ra Gen - NARD Chest - CTA bilaterally, nml RR CV - RRR S1/S2 Abd - Soft, NT/ND, Positive BS Ext - No pedal edema. +[place] Neuro - Alert and oriented. Nonfocal exam. Psych - Nml mood and affect Skin - Warm and dry Objective Data Vital Signs Vital Signs: Vital Signs - 24 hr 03/04/24 14:00 03/04/24 20:00 03/04/24 21:51 Temperature 98.2 F 97.2 F L Pulse Rate 83 79 Respiratory Rate 16 16 Blood Pressure 130/61 141/60 H Pulse Oximetry 99 98 Oxygen Delivery Room Air 03/05/24 05:51 03/05/24 08:00 Temperature 96.9 F L Pulse Rate 80 Respiratory Rate 14 Blood Pressure 149/70 H Pulse Oximetry 99 99 Oxygen Delivery Room Air Intake/Output Intake/Output: Intake & Output 03/02/24 03/03/24 03/04/24 03/05/24 23:59 23:59 23:5
[2024-03-05 14:00] VITALS: BP 123/72; PULSE 80; RESP 16; TEMP 36.1; O2SAT 98
[2024-03-05] MEDS: ENOXAPARIN 40 MG/0.4 ML SYRINGE SUB-Q (14:12)
[2024-03-05 21:25] VITALS: BP 145/67; PULSE 68; RESP 16; TEMP 36.1; O2SAT 100
[2024-03-06] MEDS: PIPERACILLN/TAZ 3.375GM/NS50ML 3.375 GM/50 ML BAG IVPB ×4 (00:25→17:07)
[2024-03-06 05:42] VITALS: BP 137/60; PULSE 67; RESP 16; TEMP 36.4; O2SAT 97
[2024-03-06 05:53] LABS: Basophils Percent Auto 0.8 % (0.2-1.2); Eosinophils Absolute Auto 0.2 K/mm3 (0-0.3); Eosinophils Percent Auto 3.3 % (0-4.4); Hematocrit 34.1 % (37.0-47.0); Hemoglobin 11.2 g/dL (12.0-15.0); Immature Granulocyte Absolute 0.02 K/mm3 (0.00-0.031); Immature Granulocyte Percent A 0.4 % (0-0.5); Lymphocytes Absolute Auto 1.19 K/mm3 (0.9-3.2); Lymphocytes Percent Auto 24.8 % (18.3-44.2); Mean Corpuscular HGB Conc 32.8 g/dl (32-36); Mean Corpuscular Hemoglobin 30.7 pg (26-34); Mean Corpuscular Volume 93.4 fl (80-100); Mean Platelet Volume 9.7 fl (7.4-10.4); Monocytes Absolute Auto 0.6 K/mm3 (0.1-0.6); Monocytes Percent Auto 12.5 % (2.6-8.5); Neutrophils Absolute Auto 2.8 K/mm3 (1.3-6.7); Neutrophils Percent Auto 58.2 % (45.5-73.1); Platelet Count Result 308 k/mm3 (150-375); Red Blood Count 3.65 M/mm3 (4.2-5.4); Red Cell Distribution Width 12.1 % (11.5-14.5); White Blood Count 4.8 K/mm3 (4.5-10.0)
[2024-03-06 06:11] LABS: Alanine Aminotransferase 29 U/L (6-35); Albumin Level 3.6 g/dL (3.5-5.1); Alkaline Phosphatase 82 U/L (38-126); Anion Gap 7 mmol/L (4-12); Aspartate Amino Transferase 29 U/L (14-36); Bilirubin,Total 0.6 mg/dL (0.2-1.3); Blood Urea Nitrogen 5 mg/dL (7-17); CRP 7.2 mg/dL (<1.0); Calcium 8.9 mg/dL (8.4-10.2); Carbon Dioxide 29 mmol/L (22-30); Chloride 103 mmol/L (98-107); Estimated CRCL calculation 97 ml/min; Estimated Glomerular Filt Rate > 60; Glucose 102 mg/dL (65-110); Potassium 3.6 mmol/L (3.4-5.0); Sodium 139 mmol/L (137-145)
[2024-03-06] MEDS: SODIUM CHLORIDE 0.9% IV 1,000 ML 70 ML IV CONT (06:29)
--- NOTE | 2024-03-06 09:50 | PM.GYNPNOP ---
WATER ATTENDANT - A/P Assessment and plan (1) Constipation: Code(s): K59.00 - Constipation, unspecified Status: Acute (2) Pelvic fluid collection: Code(s): R18.8 - Other ascites Status: Acute (3) History of hysterectomy: Onset Date: ~03/2024 Code(s): Z90.710 - Acquired absence of both cervix and uterus Status: Acute (4) Rectal laceration: Qualifiers: Encounter type: subsequent encounter Qualified Code(s): S36.63XD - Laceration of rectum, subsequent encounter Code(s): S36.63XA - Laceration of rectum, initial encounter Status: Acute (5) Sigmoid diverticulitis: Code(s): K57.32 - Diverticulitis of large intestine without perforation or abscess without bleeding Status: Acute Plan Appears to be recovering, some new rectal pressure, surgery and Medicine doing the decision making on these items. Will follow-up at the end of next week if discharged today. Time Spent With Patient Time: Total time spent is greater than 50% in coordination of care (as documented) at patient's floor/unit and/or counseling patient: Time with patient: less than 15 minutes WATER ATTENDANT- PN:Subj Post-Op Subjective Date/time seen: 03/06/24 09:50 Some lower pelvic pressure again today, diarrhea, passing flatus, no nausea, vomiting, fever, chills. Interval history: 44yo female with recent RENATO/BSO 02/23 complicated by rectal laceration s/p intraoperative laparoscopic rectal laceration repair who returns for abdominal pain and found to have diverticulitis and pelvic abscess. Assuming care. Chart reviewed. Patient feeling better. Abdominal pain is improved. Still having small liquid bowel movements. WATER ATTENDANT - PN: Obj Data Vital Signs Vital Signs: Vital Signs - 24 hr 03/05/24 14:00 03/05/24 21:25 03/05/24 20:00 Temperature 97.0 F L 97.0 F L Pulse Rate 80 68 Respiratory Rate 16 16 Blood Pressure 123/72 145/67 H Pulse Oximetry 98 100 Oxygen Delivery Room Air 03/06/24 05:42 Temperature 97.6 F Pulse Rate 67 Respiratory Rate 16 Blood Pressure 137/60 Pulse Oximetry 97 Oxygen Delivery Intake/Output Intake/Output: Intake & Output 03/03/24 03/04/24 03/05/24 03/06/24 23:59 23:59 23:59 23:59 Intake Total 1050 2160 3000 170 Balance 1050 2160 3000 170 Meds/Results Medications: Active Medications Generic Name Dose Route Start Last Admin Trade Name Freq PRN Reason Stop Dose Admin Enoxaparin Sodium 40 mg 03/06/24 09:00 Enoxaparin 40 Mg/0.4 Ml Syringe SUB-Q DAILY RIVERA Piperacillin/Tazobactam/Dextrose 3.375 gm in 50 mls @ 100 mls/hr 03/04/24 06:00 03/06/24 06:26 Zosyn 3.375 Gm/Ns 50 Ml IVPB 100 mls/hr Q6H RIVERA Administration Sodium Chloride 1,000 mls @ 70 mls/hr 03/03/24 23:00 03/06/24 06:29 Normal Saline Iv IV CONT 70 mls/hr .[id number] RIVERA Administration Morphine Sulfate 2 mg 03/04/24 01:23 Morphine Sulfate (*Crx) 4 Mg/Ml Inj IV PUSH Q2H PRN Pain Rated 7-10 Ondansetron HCl 4 mg 03/03/24 22:56 Ondansetron Inj 4 Mg/2 Ml Vial IV PUSH Q4H PRN Nausea Pantoprazole Sodium 40 mg 03/04/24 09:00 03/05/24 09:18 Pantoprazole Sodium Iv 40 Mg Vial IV PUSH 40 mg QAM RIVERA Administration Polyethylene Glycol 17 gm 03/05/24 09:00 03/05/24 09:18 Polyethylene Glycol 3350 17 Gm Powd.Pack PO 17 gm QAM RIVERA Administration Radiology Results: ITS Impressions Abdomen/Pelvis CT 03/03/24 21:31 IMPRESSION: 1. Highly suggestive sigmoid diverticulitis with abscess seen in the pelvis. 2. Thickened wall of the urinary bladder with cystitis. Abdomen X-Ray 03/05/24 10:25 IMPRESSION: 1. Normal bowel gas pattern. Venous Doppler Study 03/05/24 15:00 IMPRESSION: 1. No deep venous thrombosis in either lower limb. Labs 03/06/24 05:00 03/06/24 05:00 Labs: Laboratory Results - last 24 hr 03/06/24 05:00 WBC 4.8 RBC 3.65 L Hgb 11.2 L H
[2024-03-06] MEDS: ENOXAPARIN 40 MG/0.4 ML SYRINGE SUB-Q (10:10)
[2024-03-06] MEDS: polyethylene glycoL 3350 17 GM POWD.PACK PO (10:11)
[2024-03-06] MEDS: PANTOPRAZOLE SODIUM IV 40 MG VIAL IV PUSH (10:11)
--- NOTE | 2024-03-06 10:52 | PM.PNGS ---
Progress Note: A&P Assessment and Plan (1) Sigmoid diverticulitis: Code(s): K57.32 - Diverticulitis of large intestine without perforation or abscess without bleeding Status: Acute Assessment and Plan: exam benign, will advance to low fiber diet, if elizabeth diet ok to dc from surgical standpoint Subjective Subjective Date/Time Seen: 03/06/24 10:52 Interval history: feels good, some mild lower abd pain, elizabeth clears Review of Systems Review of Systems: All systems reviewed & are unremarkable except as noted in HPI and below Exam Const: General: cooperative, comfortable and no acute distress Resp: Auscultation: clear to auscultation bilaterally Cardio: Rate: regular rate Rhythm: regular rhythm GI: Inspection: normal to inspection and non-distended GI Palp: Yes abdominal tenderness, Yes Soft to palpation, Yes Tenderness to palpation present (GI), No Guarding due to palpation present (GI) and No Rigid due to palpation Objective Data Vital Signs Vital Signs: Vital Signs - 24 hr 03/05/24 14:00 03/05/24 21:25 03/05/24 20:00 Temperature 36.1 C L 36.1 C L Pulse Rate 80 68 Respiratory Rate 16 16 Blood Pressure 123/72 145/67 H Pulse Oximetry 98 100 Oxygen Delivery Room Air 03/06/24 05:42 Temperature 36.4 C Pulse Rate 67 Respiratory Rate 16 Blood Pressure 137/60 Pulse Oximetry 97 Oxygen Delivery Intake/Output Intake/Output: Intake & Output 03/03/24 03/04/24 03/05/24 03/06/24 23:59 23:59 23:59 23:59 Intake Total 1050 2160 3000 170 Balance 1050 2160 3000 170 Meds/Results Medications: Active Medications Generic Name Dose Route Start Last Admin Trade Name Freq PRN Reason Stop Dose Admin Enoxaparin Sodium 40 mg 03/06/24 09:00 03/06/24 10:10 Enoxaparin 40 Mg/0.4 Ml Syringe SUB-Q 40 mg DAILY RIVERA Administration Piperacillin/Tazobactam/Dextrose 3.375 gm in 50 mls @ 100 mls/hr 03/04/24 06:00 03/06/24 06:26 Zosyn 3.375 Gm/Ns 50 Ml IVPB 100 mls/hr Q6H RIVERA Administration Sodium Chloride 1,000 mls @ 70 mls/hr 03/03/24 23:00 03/06/24 06:29 Normal Saline Iv IV CONT 70 mls/hr .[id number] RIVERA Administration Morphine Sulfate 2 mg 03/04/24 01:23 Morphine Sulfate (*Crx) 4 Mg/Ml Inj IV PUSH Q2H PRN Pain Rated 7-10 Ondansetron HCl 4 mg 03/03/24 22:56 Ondansetron Inj 4 Mg/2 Ml Vial IV PUSH Q4H PRN Nausea Pantoprazole Sodium 40 mg 03/04/24 09:00 03/06/24 10:11 Pantoprazole Sodium Iv 40 Mg Vial IV PUSH 40 mg QAM RIVERA Administration Polyethylene Glycol 17 gm 03/05/24 09:00 03/06/24 10:11 Polyethylene Glycol 3350 17 Gm Powd.Pack PO 17 gm QAM RIVERA Administration Radiology Results: ITS Impressions Abdomen/Pelvis CT 03/03/24 21:31 IMPRESSION: 1. Highly suggestive sigmoid diverticulitis with abscess seen in the pelvis. 2. Thickened wall of the urinary bladder with cystitis. Abdomen X-Ray 03/05/24 10:25 IMPRESSION: 1. Normal bowel gas pattern. Venous Doppler Study 03/05/24 15:00 IMPRESSION: 1. No deep venous thrombosis in either lower limb. Labs Labs: Laboratory Results - last 24 hr 03/06/24 05:00 WBC 4.8 RBC 3.65 L Hgb 11.2 L Hct 34.1 L MCV 93.4 MCH 30.7 MCHC 32.8 RDW 12.1 Plt Count 308 MPV 9.7 Immature Gran % (Auto) 0.4 Neut % (Auto) 58.2 Lymph % (Auto) 24.8 [place] % (Auto) 12.5 H Eos % (Auto) 3.3 Baso % (Auto) 0.8 Lymph # (Auto) 1.19 [place] # (Auto) 0.6 Eos # (Auto) 0.2 Baso # (Auto) 0.0 Abs Immat Gran (auto) 0.02 Absolute Neuts (auto) 2.8 Absolute Nucleated RBC 0.000 Nucleated RBC % 0.0 Sodium 139 Potassium 3.6 Chloride 103 Carbon Dioxide 29 Anion Gap 7 BUN 5 L Creatinine 0.70 Estim Creat Clear Calc 97 Estimated GFR > 60 Glucose 102 Calcium 8.9 Total Bilirubin 0.6 AST 29 ALT 29 Alkaline Phosphatase 82 C-Reactive Protein 7.2 H Total Protein 7.0 Albumin 3.6
--- NOTE | 2024-03-06 13:33 | PM.IMPN ---
Progress Note: A&P Assessment and Plan (1) Sigmoid diverticulitis: Code(s): K57.32 - Diverticulitis of large intestine without perforation or abscess without bleeding Status: Acute Assessment and Plan: Patient presents with abdominal pain and found to have an acute sigmoid diverticulitis with pelvic abscess visible on CT. Patient started on empiric IV antibiotics (Zosyn) after appropriate cultures obtained. WBC was normal and remains normal. Blood cultures growing bacteroides in 1 anaerobic bottle only. Repeat BCx NGTD General surgery and procedure rn consulted. Discussed with GenSurg about repeat imaging to see if there is a drainable pocket so as to improve source control Clinically improved. Continue IV antibiotics. Follow-up on cultures (2) Pelvic fluid collection: Code(s): R18.8 - Other ascites Status: Acute Assessment and Plan: Concerned patient may have a pelvic abscess either related to recent surgery or from perforated diverticulitis. Fluid pocket measures 4.6 x 1.9 cm. Continue IV antibiotics. Appreciate General surgery input (3) Anaerobic bacteremia: Code(s): R78.81 - Bacteremia Status: Acute Assessment and Plan: As above (4) History of hysterectomy: Onset Date: ~03/2024 Code(s): Z90.710 - Acquired absence of both cervix and uterus Status: Acute Assessment and Plan: S/p total laparoscopic hysterectomy with bilateral salpingectomy on 02/24/[address] Francisco, who has been consulted. Having calf pain recently but dopplers negative for DVT Appreciate recommendations. (5) Rectal laceration: Qualifiers: Encounter type: subsequent encounter Qualified Code(s): S36.63XD - Laceration of rectum, subsequent encounter Code(s): S36.63XA - Laceration of rectum, initial encounter Status: Acute Assessment and Plan: Intraoperative serosal injury on 02/24/24 s/p laparoscopic repair rectal laceration by Dr. Ayers. As above, General surgery has been consulted recommendations are appreciated. (6) Anemia: Code(s): D64.9 - Anemia, unspecified Status: Acute Assessment and Plan: Mild anemia, likely related to dilutional effect from IV fluids and recent surgery. No evidence of active bleeding. Continue to monitor H&H closely. Was previously on iron supplement due to menorrhagia induced anemia, was discontinued after hysterectomy. Stop IV fluids (7) UTI (urinary tract infection): Qualifiers: Hematuria presence: with hematuria Urinary tract infection type: acute cystitis Qualified Code(s): N30.01 - Acute cystitis with hematuria Code(s): N39.0 - Urinary tract infection, site not specified Status: Acute Assessment and Plan: UA grossly abnormal, consistent with infection, and patient is symptomatic. Urine culture is negative. UTI ruled out. Plan DVT prophylaxis -SCDs, Lovenox Code status -full Subjective Date/time seen: 03/06/24 13:33 Interval history: 44yo female with recent RENATO/BSO 02/23 complicated by rectal laceration s/p intraoperative laparoscopic rectal laceration repair who returns for abdominal pain and found to have diverticulitis and pelvic abscess. Still having liquid stools. No abd pain. Up walking to the BR. Diet to be advanced today. Exam Narrative: AF 97.6 137/60 67 16 97% ra Gen - NARD Chest - CTA bilaterally, nml RR CV - RRR S1/S2 Abd - Soft, NT/ND, Positive BS. Small abd incision are clean, dry and intact Ext - No pedal edema Psych - Nml mood and affect Skin - Warm and dry Objective Data Vital Signs Vital Signs: Vital Signs - 24 hr 03/05/24 14:00 03/05/24 21:25 03/05/24 20:00 Temperature 97.0 F L 97.0 F L Pulse Rate 80 68 Respiratory Rate 16 16 Blood Pressure 123/72 145/67 H Pulse Oximetry 98 100 Oxygen Delivery Room Air 03/06/24 05:42 Temperature 97.6 F Pulse Ra
[2024-03-06 14:00] VITALS: BP 155/73; PULSE 77; RESP 12; TEMP 37.1; O2SAT 99
[2024-03-06 20:40] VITALS: BP 153/73; PULSE 69; RESP 18; TEMP 36.2; O2SAT 100
[2024-03-07] MEDS: PIPERACILLN/TAZ 3.375GM/NS50ML 3.375 GM/50 ML BAG IVPB ×4 (00:14→17:57)
[2024-03-07 05:05] VITALS: BP 138/70; PULSE 70; RESP 16; TEMP 36.2; O2SAT 98
[2024-03-07 06:19] LABS: Basophils Percent Auto 0.6 % (0.2-1.2); Eosinophils Absolute Auto 0.2 K/mm3 (0-0.3); Hematocrit 32.5 % (37.0-47.0); Immature Granulocyte Absolute 0.04 K/mm3 (0.00-0.031); Immature Granulocyte Percent A 0.8 % (0-0.5); Lymphocytes Percent Auto 24.7 % (18.3-44.2); Mean Corpuscular HGB Conc 33.8 g/dl (32-36); Mean Corpuscular Hemoglobin 31.1 pg (26-34); Mean Corpuscular Volume 91.8 fl (80-100); Mean Platelet Volume 9.7 fl (7.4-10.4); Monocytes Absolute Auto 0.6 K/mm3 (0.1-0.6); Monocytes Percent Auto 11.2 % (2.6-8.5); Neutrophils Absolute Auto 3.2 K/mm3 (1.3-6.7); Neutrophils Percent Auto 59.7 % (45.5-73.1); Platelet Count Result 288 k/mm3 (150-375); Red Blood Count 3.54 M/mm3 (4.2-5.4); Red Cell Distribution Width 12.1 % (11.5-14.5); White Blood Count 5.3 K/mm3 (4.5-10.0)
[2024-03-07 06:48] LABS: Anion Gap 8 mmol/L (4-12); Blood Urea Nitrogen 9 mg/dL (7-17); CRP 4.4 mg/dL (<1.0); Calcium 8.6 mg/dL (8.4-10.2); Carbon Dioxide 28 mmol/L (22-30); Chloride 103 mmol/L (98-107); Estimated CRCL calculation 97 ml/min; Estimated Glomerular Filt Rate > 60; Glucose 103 mg/dL (65-110); Potassium 3.5 mmol/L (3.4-5.0); Sodium 139 mmol/L (137-145)
--- NOTE | 2024-03-07 08:21 | PM.PNGS ---
Progress Note: A&P Assessment and Plan (1) Pelvic fluid collection: Code(s): R18.8 - Other ascites Status: Acute Assessment and Plan: given bacteremia will proceed c IR drainage of pelvic abscess, cont abx (2) Anaerobic bacteremia: Code(s): R78.81 - Bacteremia Status: Acute Assessment and Plan: see above Subjective Subjective Date/Time Seen: 03/07/24 08:21 Interval history: feels pretty good, elizabeth low fat diet, some mild pelvic pressure/discomfort Review of Systems Review of Systems: All systems reviewed & are unremarkable except as noted in HPI and below Exam Const: General: cooperative, comfortable and no acute distress Resp: Auscultation: clear to auscultation bilaterally Cardio: Rate: regular rate Rhythm: regular rhythm GI: Inspection: normal to inspection and non-distended GI Palp: Yes abdominal tenderness, Yes Soft to palpation, Yes Tenderness to palpation present (GI), No Guarding due to palpation present (GI) and No Rigid due to palpation Objective Data Vital Signs Vital Signs: Vital Signs - 24 hr 03/06/24 14:00 03/06/24 20:40 03/06/24 20:00 Temperature 37.1 C 36.2 C L Pulse Rate 77 69 Respiratory Rate 12 18 Blood Pressure 155/73 H 153/73 H Pulse Oximetry 99 100 Oxygen Delivery Room Air 03/07/24 05:05 Temperature 36.2 C L Pulse Rate 70 Respiratory Rate 16 Blood Pressure 138/70 Pulse Oximetry 98 Oxygen Delivery Intake/Output Intake/Output: Intake & Output 03/04/24 03/05/24 03/06/24 03/07/24 23:59 23:59 23:59 23:59 Intake Total 2160 3000 520 150 Balance 2160 3000 520 150 Meds/Results Medications: Active Medications Generic Name Dose Route Start Last Admin Trade Name Freq PRN Reason Stop Dose Admin Enoxaparin Sodium 40 mg 03/06/24 09:00 03/06/24 10:10 Enoxaparin 40 Mg/0.4 Ml Syringe SUB-Q 40 mg DAILY RIVERA Administration Piperacillin/Tazobactam/Dextrose 3.375 gm in 50 mls @ 100 mls/hr 03/04/24 06:00 03/07/24 05:18 Zosyn 3.375 Gm/Ns 50 Ml IVPB 100 mls/hr Q6H RIVERA Administration Morphine Sulfate 2 mg 03/04/24 01:23 Morphine Sulfate (*Crx) 4 Mg/Ml Inj IV PUSH Q2H PRN Pain Rated 7-10 Ondansetron HCl 4 mg 03/03/24 22:56 Ondansetron Inj 4 Mg/2 Ml Vial IV PUSH Q4H PRN Nausea Pantoprazole Sodium 40 mg 03/04/24 09:00 03/06/24 10:11 Pantoprazole Sodium Iv 40 Mg Vial IV PUSH 40 mg QAM RIVERA Administration Polyethylene Glycol 17 gm 03/05/24 09:00 03/06/24 10:11 Polyethylene Glycol 3350 17 Gm Powd.Pack PO 17 gm QAM RIVERA Administration Radiology Results: ITS Impressions Abdomen X-Ray 03/05/24 10:25 IMPRESSION: 1. Normal bowel gas pattern. Venous Doppler Study 03/05/24 15:00 IMPRESSION: 1. No deep venous thrombosis in either lower limb. Abdomen/Pelvis CT 03/06/24 14:50 IMPRESSION: Pelvic abscess, very slight interval decrease in size and decreased inflammation, otherwise unchanged. Cystitis versus reactive change in the urinary bladder. No other acute abdominopelvic process. Labs Labs: Laboratory Results - last 24 hr 03/07/24 05:44 WBC 5.3 RBC 3.54 L Hgb 11.0 L Hct 32.5 L MCV 91.8 MCH 31.1 MCHC 33.8 RDW 12.1 Plt Count 288 MPV 9.7 Immature Gran % (Auto) 0.8 H Neut % (Auto) 59.7 Lymph % (Auto) 24.7 [place] % (Auto) 11.2 H Eos % (Auto) 3.0 Baso % (Auto) 0.6 Lymph # (Auto) 1.30 [place] # (Auto) 0.6 Eos # (Auto) 0.2 Baso # (Auto) 0.0 Abs Immat Gran (auto) 0.04 H Absolute Neuts (auto) 3.2 Absolute Nucleated RBC 0.000 Nucleated RBC % 0.0 Sodium 139 Potassium 3.5 Chloride 103 Carbon Dioxide 28 Anion Gap 8 BUN 9 Creatinine 0.70 Estim Creat Clear Calc 97 Estimated GFR > 60 Glucose 103 Calcium 8.6 C-Reactive Protein 4.4 H
[2024-03-07] MEDS: PANTOPRAZOLE SODIUM IV 40 MG VIAL IV PUSH (09:00)
[2024-03-07] MEDS: polyethylene glycoL 3350 17 GM POWD.PACK PO (09:00)
--- NOTE | 2024-03-07 10:43 | PM.GYNPNOP ---
BARK TANNER - A/P Assessment and plan (1) Intra-abdominal abscess post-procedure: Code(s): T81.43XA - Infection following a procedure, organ and space surgical site, initial encounter; K65.1 - Peritoneal abscess Status: Acute (2) Sigmoid diverticulitis: Code(s): K57.32 - Diverticulitis of large intestine without perforation or abscess without bleeding Status: Acute Time Spent With Patient Time: Total time spent is greater than 50% in coordination of care (as documented) at patient's floor/unit and/or counseling patient: Time with patient: 15 - 25 minutes BARK TANNER- PN:Subj Post-Op Subjective Date/time seen: 03/07/24 10:43 Interval history: General surgery recommends drain placement and pelvic abscess secondary to Bacteroides bacteremia. Abscess Possibly smaller on CT imaging yesterday. Overlies vagina. could be drained vaginally with Pasha drain placement. rectal injury could complicate that, if adherent to vagina. Normal white count. Afebrile. Denies nausea, vomiting, fever, chills. . Less rectal pressure today BARK TANNER - PN: Obj Data Vital Signs Vital Signs: Vital Signs - 24 hr 03/06/24 14:00 03/06/24 20:40 03/06/24 20:00 Temperature 98.7 F 97.2 F L Pulse Rate 77 69 Respiratory Rate 12 18 Blood Pressure 155/73 H 153/73 H Pulse Oximetry 99 100 Oxygen Delivery Room Air 03/07/24 05:05 Temperature 97.1 F L Pulse Rate 70 Respiratory Rate 16 Blood Pressure 138/70 Pulse Oximetry 98 Oxygen Delivery Intake/Output Intake/Output: Intake & Output 03/04/24 03/05/24 03/06/24 03/07/24 23:59 23:59 23:59 23:59 Intake Total 2160 3000 520 390 Balance 2160 3000 520 390 Meds/Results Medications: Active Medications Generic Name Dose Route Start Last Admin Trade Name Freq PRN Reason Stop Dose Admin Enoxaparin Sodium 40 mg 03/06/24 09:00 03/06/24 10:10 Enoxaparin 40 Mg/0.4 Ml Syringe SUB-Q 40 mg DAILY RIVERA Administration Piperacillin/Tazobactam/Dextrose 3.375 gm in 50 mls @ 100 mls/hr 03/04/24 06:00 03/07/24 05:18 Zosyn 3.375 Gm/Ns 50 Ml IVPB 100 mls/hr Q6H RIVERA Administration Morphine Sulfate 2 mg 03/04/24 01:23 Morphine Sulfate (*Crx) 4 Mg/Ml Inj IV PUSH Q2H PRN Pain Rated 7-10 Ondansetron HCl 4 mg 03/03/24 22:56 Ondansetron Inj 4 Mg/2 Ml Vial IV PUSH Q4H PRN Nausea Pantoprazole Sodium 40 mg 03/04/24 09:00 03/07/24 09:00 Pantoprazole Sodium Iv 40 Mg Vial IV PUSH 40 mg QAM RIVERA Administration Polyethylene Glycol 17 gm 03/05/24 09:00 03/07/24 09:00 Polyethylene Glycol 3350 17 Gm Powd.Pack PO 17 gm QAM RIVERA Administration Radiology Results: ITS Impressions Abdomen X-Ray 03/05/24 10:25 IMPRESSION: 1. Normal bowel gas pattern. Venous Doppler Study 03/05/24 15:00 IMPRESSION: 1. No deep venous thrombosis in either lower limb. Abdomen/Pelvis CT 03/06/24 14:50 IMPRESSION: Pelvic abscess, very slight interval decrease in size and decreased inflammation, otherwise unchanged. Cystitis versus reactive change in the urinary bladder. No other acute abdominopelvic process. Labs 03/07/24 05:44 03/07/24 05:44 Labs: Laboratory Results - last 24 hr 03/07/24 05:44 WBC 5.3 RBC 3.54 L Hgb 11.0 L Hct 32.5 L MCV 91.8 MCH 31.1 MCHC 33.8 RDW 12.1 Plt Count 288 MPV 9.7 Immature Gran % (Auto) 0.8 H Neut % (Auto) 59.7 Lymph % (Auto) 24.7 [place] % (Auto) 11.2 H Eos % (Auto) 3.0 Baso % (Auto) 0.6 Lymph # (Auto) 1.30 [place] # (Auto) 0.6 Eos # (Auto) 0.2 Baso # (Auto) 0.0 Abs Immat Gran (auto) 0.04 H Absolute Neuts (auto) 3.2 Absolute Nucleated RBC 0.000 Nucleated RBC % 0.0 Sodium 139 Potassium 3.5 Chloride 103 Carbon Dioxide 28 Anion Gap 8 BUN 9 Creatinine 0.70 Estim Creat Clear Calc 97 Estimated GFR > 60 Glucose 103 Calcium 8.6 C-Reactive Protein 4.4 H
[2024-03-07 14:00] VITALS: BP 128/62; PULSE 60; RESP 16; TEMP 36.8; O2SAT 98
--- NOTE | 2024-03-07 17:31 | PM.IMPN ---
Progress Note: A&P Assessment and Plan (1) Sigmoid diverticulitis: Code(s): K57.32 - Diverticulitis of large intestine without perforation or abscess without bleeding Status: Acute Assessment and Plan: Patient presents with abdominal pain and found to have an acute sigmoid diverticulitis with possible pelvic abscess visible on CT. Patient started on empiric IV antibiotics (Zosyn) after appropriate cultures obtained. WBC was normal and remains normal. CRP 7.2 and trending down. Blood cultures growing bacteroides in 1 anaerobic bottle only. Repeat BCx NGTD General surgery and cat breeder consulted. Repeat CT Abd/Pelvis showing pelvic abscess with very slight decrease in size and inflammation. Clinically improved. Continue IV antibiotics. Plan for drain placement tomorrow. (2) Pelvic fluid collection: Code(s): R18.8 - Other ascites Status: Acute Assessment and Plan: Concerned patient may have a pelvic abscess either related to recent surgery or from perforated diverticulitis. As above Continue IV antibiotics. Appreciate General surgery input (3) Anaerobic bacteremia: Code(s): R78.81 - Bacteremia Status: Acute Assessment and Plan: As above (4) History of hysterectomy: Onset Date: ~03/2024 Code(s): Z90.710 - Acquired absence of both cervix and uterus Status: Acute Assessment and Plan: S/p total laparoscopic hysterectomy with bilateral salpingectomy on 02/24/[address] Francisco, who has been consulted. procedure complicated by rectal laceration and patient underwent intraoperative laparoscopic rectal laceration repair by Dr. Ayers. Having calf pain recently but dopplers negative for DVT Appreciate recommendations. (5) Rectal laceration: Qualifiers: Encounter type: subsequent encounter Qualified Code(s): S36.63XD - Laceration of rectum, subsequent encounter Code(s): S36.63XA - Laceration of rectum, initial encounter Status: Acute Assessment and Plan: Intraoperative serosal injury on 02/24/24 s/p laparoscopic repair rectal laceration by Dr. Ayers. As above, General surgery has been consulted and recommendations are appreciated. (6) Anemia: Code(s): D64.9 - Anemia, unspecified Status: Acute Assessment and Plan: Mild anemia, likely related to dilutional effect from IV fluids and recent surgery. No evidence of active bleeding. HH low but stable in the 11 range Continue to monitor H&H closely. (7) UTI (urinary tract infection): Qualifiers: Hematuria presence: with hematuria Urinary tract infection type: acute cystitis Qualified Code(s): N30.01 - Acute cystitis with hematuria Code(s): N39.0 - Urinary tract infection, site not specified Status: Acute Assessment and Plan: UA grossly abnormal, consistent with infection, and patient is symptomatic. Urine culture is negative. UTI ruled out. Plan DVT prophylaxis - SCDs, Lovenox Code status -full Subjective Date/time seen: 03/07/24 17:31 Interval history: 44yo female with recent RENATO/BSO 02/23 complicated by rectal laceration s/p intraoperative laparoscopic rectal laceration repair who returns for abdominal pain and found to have diverticulitis and pelvic abscess. having solid BM now without pain. Lower abd pain better. Tolerating diet. Exam Narrative: AF 98.2 128/62 60 16 98% ra Gen - NARD Chest - CTA bilaterally, nml RR CV - RRR S1/S2 Abd - Soft, NT/ND, Positive BS. minimal bilateral LQ tenderness. no guarding Ext - No pedal edema Psych - Nml mood and affect Skin - Warm and dry Objective Data Vital Signs Vital Signs: Vital Signs - 24 hr 03/06/24 20:40 03/06/24 20:00 03/07/24 05:05 Temperature 97.2 F L 97.1 F L Pulse Rate 69 70 Respiratory Rate 18 16 Blood Pressure 153/73 H 138/70 Pulse Oximetry 100 98 Oxygen Delivery Room Air 03/07/24
[2024-03-07 21:05] VITALS: BP 143/64; PULSE 59; RESP 12; TEMP 36.2; O2SAT 98
[2024-03-08] MEDS: PIPERACILLN/TAZ 3.375GM/NS50ML 3.375 GM/50 ML BAG IVPB ×4 (00:33→17:58)
[2024-03-08 05:24] VITALS: BP 143/58; PULSE 63; RESP 14; TEMP 36.3; O2SAT 98
[2024-03-08 06:29] LABS: Hematocrit 35.2 % (37.0-47.0); Hemoglobin 11.4 g/dL (12.0-15.0)
[2024-03-08 06:38] LABS: Prothrombin Time 13.2 Seconds (11.1-14.7)
--- NOTE | 2024-03-08 08:06 | PM.GYNPNOP ---
GROUNDWATER MONITORING TECHNICIAN - A/P Assessment and plan (1) Sigmoid diverticulitis: Code(s): K57.32 - Diverticulitis of large intestine without perforation or abscess without bleeding Status: Acute Assessment and Plan: Patient comfortable, denies any nausea, vomiting, fever, chills, denies any rectal pain. She denies abdominal pain. Some drain placed today. Hopefully discharge soon after, Dr. Tanner suggesting tomorrow. Time Spent With Patient Time: Total time spent is greater than 50% in coordination of care (as documented) at patient's floor/unit and/or counseling patient: Time with patient: less than 15 minutes GROUNDWATER MONITORING TECHNICIAN- PN:Subj Post-Op Subjective Date/time seen: 03/08/24 08:06 Patient comfortable, denies any nausea, vomiting, fever, chills, denies any rectal pain. She denies abdominal pain. Some drain placed today. Hopefully discharge soon after, Dr. Tanner suggesting tomorrow. Interval history: 44yo female with recent RENATO/BSO 02/23 complicated by rectal laceration s/p intraoperative laparoscopic rectal laceration repair who returns for abdominal pain and found to have diverticulitis and pelvic abscess. having solid BM now without pain. Lower abd pain better. Tolerating diet. GROUNDWATER MONITORING TECHNICIAN - PN: Obj Data Vital Signs Vital Signs: Vital Signs - 24 hr 03/07/24 14:00 03/07/24 21:05 03/08/24 05:24 Temperature 98.2 F 97.1 F L 97.3 F L Pulse Rate 60 59 L 63 Respiratory Rate 16 12 14 Blood Pressure 128/62 143/64 H 143/58 H Pulse Oximetry 98 98 98 Intake/Output Intake/Output: Intake & Output 03/05/24 03/06/24 03/07/24 03/08/24 23:59 23:59 23:59 23:59 Intake Total 3000 520 980 300 Balance 3000 520 980 300 Meds/Results Medications: Active Medications Generic Name Dose Route Start Last Admin Trade Name Freq PRN Reason Stop Dose Admin Enoxaparin Sodium 40 mg 03/06/24 09:00 03/07/24 18:38 Enoxaparin 40 Mg/0.4 Ml Syringe SUB-Q Not Given DAILY R[facility]A Piperacillin/Tazobactam/Dextrose 3.375 gm in 50 mls @ 100 mls/hr 07/04/24 06:00 03/08/24 06:55 Zosyn 3.375 Gm/Ns 50 Ml IVPB 100 mls/hr Q6H R[facility]A Administration Morphine Sulfate 2 mg 03/04/24 01:23 Morphine Sulfate (*Crx) 4 Mg/Ml Inj IV PUSH Q2H PRN Pain Rated 7-10 Ondansetron HCl 4 mg 03/03/24 22:56 Ondansetron Inj 4 Mg/2 Ml Vial IV PUSH Q4H PRN Nausea Pantoprazole Sodium 40 mg 03/04/24 09:00 03/07/24 09:00 Pantoprazole Sodium Iv 40 Mg Vial IV PUSH 40 mg QAM RIVERA Administration Polyethylene Glycol 17 gm 03/05/24 09:00 03/07/24 09:00 Polyethylene Glycol 3350 17 Gm Powd.Pack PO 17 gm QAM RIVERA Administration Radiology Results: ITS Impressions Abdomen X-Ray 03/05/24 10:25 IMPRESSION: 1. Normal bowel gas pattern. Venous Doppler Study 03/05/24 15:00 IMPRESSION: 1. No deep venous thrombosis in either lower limb. Abdomen/Pelvis CT 03/06/24 14:50 IMPRESSION: Pelvic abscess, very slight interval decrease in size and decreased inflammation, otherwise unchanged. Cystitis versus reactive change in the urinary bladder. No other acute abdominopelvic process. Labs 03/08/24 05:59 03/07/24 05:44 Labs: Laboratory Results - last 24 hr 03/08/24 05:59 Hgb 11.4 L Hct 35.2 L PT 13.2 INR 1.0
[2024-03-08] MEDS: PANTOPRAZOLE SODIUM IV 40 MG VIAL IV PUSH (09:05)
--- NOTE | 2024-03-08 11:23 | PM.PNGS ---
Progress Note: A&P Assessment and Plan (1) Pelvic fluid collection: Code(s): R18.8 - Other ascites Status: Acute Assessment and Plan: Proceed with CT-guided drainage of pelvic abscess in Radiology today Continue IV antibiotics Okay to advance her diet after drain is placed (2) Anaerobic bacteremia: Code(s): R78.81 - Bacteremia Status: Acute Assessment and Plan: Continue IV antibiotics Plan I have discussed the patient's case and plan of care with Dr. Ayers Subjective Subjective Date/Time Seen: 03/08/24 11:23 Patient reports: no new complaints, feels better and afebrile Interval history: Denies any abdominal pain, nausea, or vomiting. Tolerated a diet yesterday. She is currently NPO for CT-guided drainage today. Exam Const: General: comfortable and no acute distress GI: Inspection: non-distended and incision (Port incisions healing well, no erythema or drainage) GI Palp: Yes Soft to palpation, Yes Tenderness to palpation present (GI) (Very mild right lower quadrant tenderness, reportedly improved), No Guarding due to palpation present (GI) and No Rebound tenderness present Percussion: Yes normal to percussion Auscultation: normal bowel sounds Objective Data Vital Signs Vital Signs: Vital Signs - 24 hr 03/07/24 14:00 03/07/24 21:05 03/08/24 05:24 Temperature 98.2 F 97.1 F L 97.3 F L Pulse Rate 60 59 L 63 Respiratory Rate 16 12 14 Blood Pressure 128/62 143/64 H 143/58 H Pulse Oximetry 98 98 98 Oxygen Delivery 03/08/24 09:05 Temperature Pulse Rate Respiratory Rate Blood Pressure Pulse Oximetry Oxygen Delivery Room Air Intake/Output Intake/Output: Intake & Output 03/05/24 03/06/24 03/07/24 03/08/24 23:59 23:59 23:59 23:59 Intake Total 3000 520 980 300 Balance 3000 520 980 300 Meds/Results Medications: Active Medications Generic Name Dose Route Start Last Admin Trade Name Freq PRN Reason Stop Dose Admin Enoxaparin Sodium 40 mg 03/06/24 09:00 03/08/24 09:07 Enoxaparin 40 Mg/0.4 Ml Syringe SUB-Q Not Given DAILY [facility] Piperacillin/Tazobactam/Dextrose 3.375 gm in 50 mls @ 100 mls/hr 03/04/24 06:00 03/08/24 06:55 Zosyn 3.375 Gm/Ns 50 Ml IVPB 100 mls/hr Q6H [facility] Administration Metronidazole 500 mg 03/08/24 14:00 Metronidazole 500 Mg Tablet PO Q8HR [facility] Morphine Sulfate 2 mg 03/04/24 01:23 Morphine Sulfate (*Crx) 4 Mg/Ml Inj IV PUSH Q2H PRN Pain Rated 7-10 Ondansetron HCl 4 mg 03/03/24 22:56 Ondansetron Inj 4 Mg/2 Ml Vial IV PUSH Q4H PRN Nausea Pantoprazole Sodium 40 mg 03/04/24 09:00 03/08/24 09:05 Pantoprazole Sodium Iv 40 Mg Vial IV PUSH 40 mg QAM [facility] Administration Polyethylene Glycol 17 gm 03/05/24 09:00 03/07/24 09:00 Polyethylene Glycol 3350 17 Gm Powd.Pack PO 17 gm QAM RIVERA Administration Radiology Results: ITS Impressions Abdomen X-Ray 03/05/24 10:25 IMPRESSION: 1. Normal bowel gas pattern. Venous Doppler Study 03/05/24 15:00 IMPRESSION: 1. No deep venous thrombosis in either lower limb. Abdomen/Pelvis CT 03/06/24 14:50 IMPRESSION: Pelvic abscess, very slight interval decrease in size and decreased inflammation, otherwise unchanged. Cystitis versus reactive change in the urinary bladder. No other acute abdominopelvic process. Labs Labs: Laboratory Results - last 24 hr 03/08/24 05:59 Hgb 11.4 L Hct 35.2 L PT 13.2 INR 1.0
--- NOTE | 2024-03-08 12:56 | WPDMODSED ---
Moderate Sedation Note-Pt Data Patient Data Diagnosis: pelvic abscess Present Complaint: pelvic abscess Procedure to be performed/Plan: transgluteal percutaneous abscess drain placement. Allergies Allergy/AdvReac Type Severity Reaction Status Date / Time No Known Allergies Allergy Mild Verified 03/03/24 19:11 Home Medications Medication Instructions Recorded Confirmed Type No Home Medications 03/03/24 03/03/24 History Current Medications: Active Medications Enoxaparin Sodium (Enoxaparin 40 Mg/0.4 Ml Syringe) 40 mg SUB-Q DAILY [facility] Last Admin: 03/08/24 09:07 Dose: Not Given Piperacillin/Tazobactam/Dextrose (Zosyn 3.375 Gm/Ns 50 Ml) 3.375 gm in 50 mls @ 100 mls/hr IVPB Q6H [facility] Last Admin: 03/08/24 12:00 Dose: 100 mls/hr Metronidazole (Metronidazole 500 Mg Tablet) 500 mg PO Q8HR [facility] Morphine Sulfate (Morphine Sulfate (*Crx) 4 Mg/Ml Inj) 2 mg IV PUSH Q2H PRN PRN Reason: Pain Rated 7-10 Ondansetron HCl (Ondansetron Inj 4 Mg/2 Ml Vial) 4 mg IV PUSH Q4H PRN PRN Reason: Nausea Pantoprazole Sodium (Pantoprazole Sodium Iv 40 Mg Vial) 40 mg IV PUSH QAM [facility] Last Admin: 03/08/24 09:05 Dose: 40 mg Polyethylene Glycol (Polyethylene Glycol 3350 17 Gm Powd.Pack) 17 gm PO QAM [facility] Last Admin: 03/07/24 09:00 Dose: 17 gm Sedation/Anesthesia: No previous sedation/anesthesia problems (including family history). [facility] Past Medical History Medical History Healthy adult Leiomyoma Surgical History Surgical History History of hysterectomy (~03/2024) Family History Family History Grandparent Diabetes mellitus Social History Social History Social History: Lives at home with her , Phillip who is her surrogate decision maker. PCP is Dr. Hicks Smoking status: Never smoker Second hand tobacco smoke exposure: No Alcohol intake: never Substance use type: does not use Do You Feel Safe in your Home?: Yes Lack of Transportation: No Lack of Food: Never True Current Housing: I Have Housing Concerned About Future Housing: No Difficulty Paying Gas/Electric Bills: No Difficulty Paying for Meds: No Currently Unemployed: No Education: Don't Know Difficulty w/ Childcare or Family Care: No Living arrangements: with family Gender identity (if verbalized by the patient): Female Spiritual care concerns: No Mod Sed Physical Exam Physical Exam Pre Procedural Exam: Normal: Appearance, Throat, Lungs, Heart Rate and Heart Rhythm Hours since solid foods: 14 Hours since liquid intake: 14 Mallampati Classification: class II Internal Medicine - PN: Obj Da Vital Signs Vital Signs: Vital Signs - 24 hr 03/07/24 14:00 03/07/24 21:05 03/08/24 05:24 Temperature 98.2 F 97.1 F L 97.3 F L Pulse Rate 60 59 L 63 Respiratory Rate 16 12 14 Blood Pressure 128/62 143/64 H 143/58 H Pulse Oximetry 98 98 98 Oxygen Delivery 03/08/24 09:05 Temperature Pulse Rate Respiratory Rate Blood Pressure Pulse Oximetry Oxygen Delivery Room Air Intake/Output Intake/Output: Intake & Output 03/05/24 03/06/24 03/07/24 03/08/24 23:59 23:59 23:59 23:59 Intake Total 3000 520 980 350 Balance 3000 520 980 350 Meds/Results Medications: Active Medications Generic Name Dose Route Start Last Admin Trade Name Freq PRN Reason Stop Dose Admin Enoxaparin Sodium 40 mg 03/06/24 09:00 03/08/24 09:07 Enoxaparin 40 Mg/0.4 Ml Syringe SUB-Q Not Given DAILY [facility] Piperacillin/Tazobactam/Dextrose 3.375 gm in 50 mls @ 100 mls/hr 03/04/24 06:00 03/08/24 12:00 Zosyn 3.375 Gm/Ns 50 Ml IVPB 100 mls/hr Q6H [facility] Administration Metronidazole 500 mg 03/08/24 14:00 Metronidazole 500 Mg Tablet PO Q8HR [facility] Morphine Sulfate 2 mg 03/04/24 01:23 Morphine Ortega
[2024-03-08 14:00] VITALS: BP 154/68; PULSE 67; RESP 16; TEMP 36.6; O2SAT 98
[2024-03-08] MEDS: metroNIDAZOLE 500 MG TABLET PO (14:10)
--- NOTE | 2024-03-08 17:16 | PM.DS ---
DS: Admitting Diagnosis Discharge Date 03/08/24 Admitting Diagnosis Constipation, nausea DS: Discharge Diagnosis Discharge Diagnosis (1) Sigmoid diverticulitis: Code(s): K57.32 - Diverticulitis of large intestine without perforation or abscess without bleeding Status: Acute (2) Pelvic fluid collection: Code(s): R18.8 - Other ascites Status: Acute (3) Anaerobic bacteremia: Code(s): R78.81 - Bacteremia Status: Acute (4) History of hysterectomy: Onset Date: ~03/2024 Code(s): Z90.710 - Acquired absence of both cervix and uterus Status: Acute (5) Rectal laceration: Qualifiers: Encounter type: subsequent encounter Qualified Code(s): S36.63XD - Laceration of rectum, subsequent encounter Code(s): S36.63XA - Laceration of rectum, initial encounter Status: Acute (6) Anemia: Code(s): D64.9 - Anemia, unspecified Status: Acute (7) UTI (urinary tract infection): Qualifiers: Hematuria presence: with hematuria Urinary tract infection type: acute cystitis Qualified Code(s): N30.01 - Acute cystitis with hematuria Code(s): N39.0 - Urinary tract infection, site not specified Status: Acute DS: Summary Hospital Course Reason for hospitalization: 44yo female with recent RENATO/BSO 02/23 complicated by rectal laceration s/p intraoperative laparoscopic rectal laceration repair who returns for abdominal pain and found to have diverticulitis and pelvic abscess. Please see H&P for details. Hospital Course: Patient presents with abdominal pain and found to have an acute sigmoid diverticulitis with possible pelvic abscess visible on CT. Patient started on empiric IV antibiotics (Zosyn) after appropriate cultures obtained. WBC was normal and remained normal. CRP 7.2 and trending down. Blood cultures growing bacteroides in 1 anaerobic bottle only. Repeat BCx NGTD. General surgery and crematorium operator consulted. Repeat CT Abd/Pelvis showing pelvic abscess with very slight decrease in size and inflammation. She is status post total laparoscopic hysterectomy with bilateral salpingectomy on 02/24/[address] Francisco that was complicated by rectal laceration and patient underwent intraoperative laparoscopic rectal laceration repair by Dr. Ayers. She was having calf pain recently but dopplers negative for DVT. She had mild anemia, likely related to dilutional effect from IV fluids and recent surgery. No evidence of active bleeding. HH low but stable in the 11 range. UA grossly abnormal, consistent with infection, and patient is symptomatic. Urine culture is negative. UTI ruled out. She was brought down to radiology for pelvic drain placement but the fluid collection was almost completely resolved so procedure was terminated. She having minimal abd pain. Having normal BMs. She feels well and is requesting discharge. She overall did well and was able to be discharged home 03/08/2024. Status at Discharge Cognitive/behavioral status at discharge: Stable Time Spent with Patient Time attestation: Total time spent providing and/or coordinating discharge services: 35 minutes Time spent: Greater than 30 minutes Exam Narrative: AF 97.8 154/68 67 16 98% ra Gen - NARD Chest - CTA bilaterally, nml RR CV - RRR S1/S2 Abd - Soft, NT/ND, Positive BS. Ext - No pedal edema Psych - Nml mood and affect Skin - Warm and dry DS: Data Data Completed and Pending Labs on day of discharge: Labs from last 24 hours 03/08/24 05:59 Hgb 11.4 L Hct 35.2 L PT 13.2 INR 1.0 Preliminary micro results at discharge 03/05/24 13:05 Blood Culture - Preliminary Blood 03/05/24 13:01 Blood Culture - Preliminary Blood 03/03/24 22:57 Blood Culture - Preliminary Blood Bacteroides fragilis group 03/03/24 23:00 Blood Culture - Preliminary Blood Discharge Plan Discharge Attending physician on discharge: Lito Neil
== END 2024-03-08 18:40 | disposition home or self-care (01) | DRG 391 ==
LOC: ANHED 22:19 → ANH3MEDSUR 23:17
PROVIDERS: Emergency Medicine; Physician Assistant; Surgery; Admitting Provider General Practice; Emergency Provider Physician Assistant; PCP Nurse Practitioner Family; Visit Provider Internal Medicine
DX: K57.32 Diverticulitis of large intestine without perforation or abscess without bleeding (principal); K65.1 Peritoneal abscess; T81.40XA Infection following a procedure, unspecified, initial encounter; R18.8 Other ascites; N73.9 Female pelvic inflammatory disease, unspecified; B96.6 Bacteroides fragilis [B. fragilis] as the cause of diseases classified elsewhere; Z90.710 Acquired absence of both cervix and uterus; D64.9 Anemia, unspecified; K59.09 Other constipation; R30.0 Dysuria; S36.63XD Laceration of rectum, subsequent encounter
CPT/HCPCS: 36415; 72193; 74019; 74177; 80048; 80053; 81001; 83605; 83690; 83735; 84145; 85014; 85018; 85025; 85027; 85610; 86140; 87040; 87076; 87086; 87088; 93970; 96361; 96365; 99285; A9270; G0378; J1650; J2470; J2543; J7030; J7040; Q9967

== ENCOUNTER 2024-05-25 19:09 | Inpatient (IN) | payer OTHER, SELFPAY ==
[2024-05-25] VITALS (9 sets, daily range): BP systolic 100–120; BP diastolic 51–79; PULSE 95–144; RESP 14–23; TEMP 36.7–39.1; O2SAT 92–97
--- NOTE | ~2024-05-25 | CT_ITS ---
EXAMINATION: CTA chest PE protocol DATE: 05/25/2024 22:22 INDICATION: Sepsis. TECHNIQUE: Computed tomography (CT) pulmonary angiogram of the chest was performed with 100 mL Omnipa que-350 intravenous contrast. Additional 3D reconstructions utilizing coronal maximum intensity proje ction (MIP) were performed. Automated exposure control and iterative reconstruction technique were em ployed. The dose-length product was 941.21 mGy-cm. COMPARISON: None FINDINGS: No pulmonary embolism. Part solid right middle lobe nodule with 11 mm groundglass component and 4 mm solid component. There is an additional 8 mm groundglass nodule in the junction of the left upper lob e and lingula. Mild dependent atelectasis in the bilateral lower lobes. No pulmonary edema, pleural e ffusion or pneumothorax. Heart size is normal. No pericardial effusion. Thoracic aorta is normal in c aliber with no dissection. No pathologically enlarged thoracic lymphadenopathy. There is wall thicken ing at the transverse and visualized ascending and descending colon consistent with colitis. Visualiz ed upper abdomen is otherwise unremarkable. Visualized bones are also unremarkable. IMPRESSION: 1. No pulmonary embolism. 2. Colitis. 3. 11 mm part solid nodule with 4 mm solid component in the right middle lobe and additional 8 mm chilango undglass nodule at the junction of the left upper lobe and lingula. Recommend 3-6 month follow-up CT. Reviewed, dictated and finalized at location A. IMPRESSION: 1. No pulmonary embolism. 2. Colitis. 3. 11 mm part solid nodule with 4 mm solid component in the right middle lobe a nd additional 8 mm groundglass nodule at the junction of the left upper lobe an d lingula. Recommend 3-6 month follow-up CT.
--- NOTE | ~2024-05-25 | CT_ITS ---
EXAMINATION: CT abdomen pelvis w con DATE: 05/25/2024 23:29 INDICATION: Abdominal pain TECHNIQUE: Computed tomography (CT) of the abdomen and pelvis was performed with 100 mL Omnipaque-350 intravenous contrast. Automated exposure control and iterative reconstruction technique were employe d. The dose-length product was 1499.27 mGy-cm. COMPARISON: 03/06/2024 FINDINGS: Mild bibasilar atelectasis. Heart size is normal. No pericardial or pleural effusion. Liver, gallblad harman, spleen, pancreas, bilateral adrenal glands and left kidney are normal. Couple subcentimeter low- attenuation right renal cyst. There is fluid throughout the colon which demonstrates diffuse edematou s wall thickening consistent with pancolitis. Small bowel is unremarkable with no obstruction. Dense excreted contrast in the bilateral ureters and in the bladder from prior contrast enhanced chest CT. The uterus is not identified and has likely been surgically resected. No free intraperitoneal gas or fluid. No pathologically enlarged abdominal or pelvic lymphadenopathy. Mild bilateral hip osteoarthri tis. IMPRESSION: 1. Pancolitis. Reviewed, dictated and finalized at location A. IMPRESSION: 1. Pancolitis.
--- NOTE | ~2024-05-25 | XR_ITS ---
EXAMINATION: XR chest 1V portable DATE: 05/25/2024 20:37 INDICATION: Sepsis TECHNIQUE: frontal view of the chest was obtained. COMPARISON: Chest radiograph dated 10/07/07 FINDINGS: Retrocardiac airspace opacity left lower lung zone. Right lung remains clear. No pulmonary edema, ple ural effusion or pneumothorax. The cardiomediastinal silhouette is within normal limits for AP techni que. Visualized bones and soft tissues are unremarkable. IMPRESSION: 1. Opacities at the left lower lung zone suspicious for pneumonia. Reviewed, dictated and finalized at location A.
--- NOTE | 2024-05-25 19:40 | ECG_ITS ---
Test Date: 2024-05-25 19:51:31 Measurements Intervals [place] Rate: 139 P: 1 RI: 130 QRS: 5 QRSD: 86 T: 56 QT: 329 QTc: 501 Interpretive Statements SINUS TACHYCARDIA LEFT VENTRICULAR HYPERTROPHY AND ST-T CHANGE BORDERLINE R WAVE PROGRESSION, ANTERIOR LEADS MINIMAL Q WAVES- HIGH LATERAL LEADS BORDERLINE ST-T WAVE ABNORMALITY- INF/LAT LEADS BASELINE WANDER- II, AVR, AVL, V1-V6 ABNORMAL ECG No previous ECG available for comparison Electronically Signed On 05-25-2024 20:08:19 CDT by Heath Monterroso D.O.
[2024-05-25] MEDS: ACETAMINOPHEN 500 MG TABLET 1000 MG PO (20:44)
--- NOTE | 2024-05-25 20:44 | ED.ABDPAIN ---
HPI - Abdominal Pain General Chief Complaint: Abdominal Pain Stated Complaint: abd pain Time Seen by Provider: 05/25/24 20:18 History of Present Illness HPI narrative: Patient is a 44-year-old female who presents to the emergency department this evening complaining of lower abdominal pain. Patient states the pain started yesterday and she tried with at home and it has not improved and finally decided to come to the emergency department for further evaluation. In triage patient is noted to be diaphoretic, febrile and tachycardic. Patient states that she is generally does not feel well. Admits so a history of diverticulitis and states that she had a hysterectomy performed this past March and her OBGYN accidentally nicked her colon and secondary to this patient had to be hospitalized for 6 days for bacteremia. Patient denies any chest pain or shortness of breath this time, denies any urinary symptoms including dysuria or hematuria and denies any additional symptoms or concerns at this time. Related Data Home Medications Medication Instructions Recorded Confirmed No Home Medications 05/26/24 05/26/24 Allergies Allergy/AdvReac Type Severity Reaction Status Date / Time No Known Allergies Allergy Mild Verified 05/26/24 00:11 Review of Systems Review of Systems: All systems are reviewed and are negative unless stated otherwise in the HPI. [facility] Past Medical History Medical History Healthy adult Leiomyoma Surgical History Surgical History History of hysterectomy (~03/2024) Family History Family History Grandparent Diabetes mellitus Social History Social History Social History: Lives at home with her , Phillip who is her surrogate decision maker. PCP is Dr. Hicks Smoking status: Never smoker Second hand tobacco smoke exposure: No Alcohol intake: never Substance use type: does not use Do You Feel Safe in your Home?: Yes Lack of Transportation: No Lack of Food: Never True Current Housing: I Have Housing Concerned About Future Housing: No Difficulty Paying Gas/Electric Bills: No Difficulty Paying for Meds: No Currently Unemployed: No Education: Don't Know Difficulty w/ Childcare or Family Care: No Living arrangements: with family Gender identity (if verbalized by the patient): Female Spiritual care concerns: No Exam Narrative: General: Alert, awake, febrile, diaphoretic. HEENT: PERRL, no rhinorrhea, no post nasal drip, oropharynx clear. Neck: Trachea midline, no JVD, no lymphadenopathy. Cardiovascular: Tachycardic with regular rhythm, no murmurs, rubs or gallops, no peripheral edema. Respiratory: Clear to auscultation bilaterally, no tachypnea, no wheezing, no rhonchi, no rubs, no respiratory distress. Abdomen: Soft, nontender, nondistended, no rebound, no guarding, no peritoneal signs. Musculoskeletal: No joint swelling or deformity, normal muscle tone. Skin: No rashes or petechia, no signs of infection. Neurological: Alert and oriented to person, place, and time. Follows all commands. No focal deficits, speech is clear and fluent. Course Vital Signs Vital signs: Vital Signs Temperature 102.4 F H 05/25/24 19:31 Pulse Rate 144 H 05/25/24 19:31 Respiratory Rate 20 05/25/24 19:31 Blood Pressure 120/70 05/25/24 19:31 Pulse Oximetry 97 05/25/24 19:31 Oxygen Delivery Room Air 05/25/24 19:31 Temperature 98.0 F 05/25/24 21:30 Pulse Rate 115 H 05/25/24 21:30 Respiratory Rate 19 05/25/24 21:30 Blood Pressure 114/61 05/25/24 21:30 Pulse Oximetry 92 05/25/24 21:30 Oxygen Delivery Room Air 05/25/24 19:31 MDM - Abdominal Pain MDM Narrative Medical decision making narrative: The patient was evaluated by
[2024-05-25] MEDS: ONDANSETRON INJ 4 MG/2 ML VIAL IV PUSH (20:46)
[2024-05-25] MEDS: SODIUM CHLORIDE 0.9% IV 1,000 ML 999 ML IV CONT (20:47)
[2024-05-25 21:08] LABS: Hematocrit 47.4 % (37.0-47.0); Hemoglobin 16.8 g/dL (12.0-15.0); Mean Corpuscular HGB Conc 35.4 g/dl (32-36); Mean Corpuscular Volume 87.5 fl (80-100); Mean Platelet Volume 10.4 fl (7.4-10.4); Platelet Count Result 234 k/mm3 (150-375); Red Blood Count 5.42 M/mm3 (4.2-5.4); Red Cell Distribution Width 13.3 % (11.5-14.5); White Blood Count 15.5 K/mm3 (4.5-10.0)
[2024-05-25 21:21] LABS: Band Neutrophils Percent 8 % (0-6); Lymphocytes Absolute Manual 0.46 K/mm3 (1.1-4.5); Lymphocytes Percent Manual 3 % (18-44); Monocytes Absolute Manual 1.08 K/mm3 (0.1-0.90); Monocytes Percent Manual 7 % (3-9); Neutrophils Absolute Manual 13.95 K/mm3 (1.7-7.2); Neutrophils Percent Manual 82 % (46-73); Platelet Estimate Adequate (Adequate); Total Cells Counted 100
[2024-05-25 21:22] LABS: Schistocytes None Seen
[2024-05-25 21:27] LABS: Alanine Aminotransferase 16 U/L (6-35); Albumin Level 4.1 g/dL (3.5-5.1); Alkaline Phosphatase 60 U/L (38-126); Anion Gap 16 mmol/L (4-12); Aspartate Amino Transferase 19 U/L (14-36); Bilirubin,Total 0.6 mg/dL (0.2-1.3); Blood Urea Nitrogen 13 mg/dL (7-17); Calcium 8.8 mg/dL (8.4-10.2); Carbon Dioxide 17 mmol/L (22-30); Chloride 99 mmol/L (98-107); Estimated CRCL calculation 62 ml/min; Estimated Glomerular Filt Rate 53; Glucose 135 mg/dL (65-110); Lipase 12 U/L (23-300); Magnesium 1.2 mg/dL (1.6-2.3); Potassium 3.4 mmol/L (3.4-5.0); Sodium 132 mmol/L (137-145)
[2024-05-25 21:45] LABS: SPREG INTERNAL CONTROL Positive; Serum Qual hCG Negative
[2024-05-25] MEDS: CEFEPIME 2 GM/NS 50 ML 2 GM/50 ML BAG IVPB (21:59)
[2024-05-25 22:22] LABS: Lactic Acid Reflex 1.7 mmol/L (0.7-2.0)
[2024-05-25 22:36] LABS: Add Urine Microscopic? YES; Appearance Urine Turbid (Clear); Bacteria Urine 4+ /hpf; Bilirubin Urine 1+ (Negative); Blood Urine 3+ (Negative); Color Urine Dark Yellow (Yellow); Glucose Urine UA Trace mg/dL (Negative); Hyaline Casts Urine Present /lpf; Ketones Urine Trace mg/dL (Negative); Leukocyte Esterase Ur 1+ LEU/UL (Negative); Mucus Urine Present /lpf; Need Manual Microscopic Reviewed; Nitrate Urine Positive (Negative); Non Pathogenic Casts >20; Protein Urine 3+ mg/dL (Negative); RBC Urine 21-50 /hpf (0-2); Specific Grav Ur 1.031 (1.001-1.035); Squamous Epithelial Cell Urine Many /hpf (Few); pH Urine 5.5 (5.0-9.0)
[2024-05-25] MEDS: VANCOMYCIN 1,250 MG/NS 250 ML 1,250 MG/250 ML BAG 166.67 MG IVPB (22:41)
[2024-05-25] MEDS: MAGNESIUM SULF 1 GM/D5W 100 ML 1 GM/100 ML BAG IVPB (22:41)
[2024-05-25 22:48] LABS: Influenza A QL RT-PCR Negative (Negative); Influenza B QL RT-PCR Negative (Negative); SARS-CoV-2 RNA PCR Negative (Negative)
--- NOTE | 2024-05-25 23:59 | PM.IMHP ---
H&P: HPI History of Present Illness Date/Time: 05/25/24 23:59 Chief Complaint: CHILLS Narrative: THIS IS A 44-YEAR-OLD FEMALE WITH PAST MEDICAL HISTORY SIGNIFICANT FOR OBESITY, RECENT HYSTERECTOMY WITH RECTAL LACERATION AN INTRA-ABDOMINAL ABSCESS. PATIENT COMES TO THE EMERGENCY ROOM TODAY DUE TO CHILLS, ABDOMINAL PAIN, CRAMPING. THIS WAS SUDDEN ONSET. IN EMERGENCY ROOM PATIENT WAS FOUND TO HAVE URINALYSIS WITH WBCS PRESENT, [place] [id number] CT OF ABDOMEN AND PELVIS WAS REPORTED PANCOLITIS. EXAMINATION: CT abdomen pelvis w con DATE: 05/25/2024 23:29 INDICATION: Abdominal pain TECHNIQUE: Computed tomography (CT) of the abdomen and pelvis was performed with 100 mL Omnipaque-350 intravenous contrast. Automated exposure control and iterative reconstruction technique were employed. The dose-length product was 1499.27 mGy-cm. COMPARISON: 03/06/2024 FINDINGS: Mild bibasilar atelectasis. Heart size is normal. No pericardial or pleural effusion. Liver, gallbladder, spleen, pancreas, bilateral adrenal glands and left kidney are normal. Couple subcentimeter low-attenuation right renal cyst. There is fluid throughout the colon which demonstrates diffuse edematous wall thickening consistent with pancolitis. Small bowel is unremarkable with no obstruction. Dense excreted contrast in the bilateral ureters and in the bladder from prior contrast enhanced chest CT. The uterus is not identified and has likely been surgically resected. No free intraperitoneal gas or fluid. No pathologically enlarged abdominal or pelvic lymphadenopathy. Mild bilateral hip osteoarthritis. IMPRESSION: 1. Pancolitis. EXAMINATION: CTA chest PE protocol DATE: 05/25/2024 22:22 INDICATION: Sepsis. TECHNIQUE: Computed tomography (CT) pulmonary angiogram of the chest was performed with 100 mL Omnipaque-350 intravenous contrast. Additional 3D reconstructions utilizing coronal maximum intensity projection (MIP) were performed. Automated exposure control and iterative reconstruction technique were employed. The dose-length product was 941.21 mGy-cm. COMPARISON: None FINDINGS: No pulmonary embolism. Part solid right middle lobe nodule with 11 mm groundglass component and 4 mm solid component. There is an additional 8 mm groundglass nodule in the junction of the left upper lobe and lingula. Mild dependent atelectasis in the bilateral lower lobes. No pulmonary edema, pleural effusion or pneumothorax. Heart size is normal. No pericardial effusion. Thoracic aorta is normal in caliber with no dissection. No pathologically enlarged thoracic lymphadenopathy. There is wall thickening at the transverse and visualized ascending and descending colon consistent with colitis. Visualized upper abdomen is otherwise unremarkable. Visualized bones are also unremarkable. IMPRESSION: 1. No pulmonary embolism. 2. Colitis. 3. 11 mm part solid nodule with 4 mm solid component in the right middle lobe and additional 8 mm groundglass nodule at the junction of the left upper lobe and lingula. Recommend 3-6 month follow-up CT. EXAMINATION: XR chest 1V portable DATE: 05/25/2024 20:37 INDICATION: Sepsis TECHNIQUE: frontal view of the chest was obtained. COMPARISON: Chest radiograph dated 10/07/07 FINDINGS: Retrocardiac airspace opacity left lower lung zone. Right lung remains clear. No pulmonary edema, pleural effusion or pneumothorax. The cardiomediastinal silhouette is within normal limits for AP technique. Visualized bones and soft tissues are unremarkable. IMPRESSION: 1. Opacities at the left lower lung zone suspicious for pneumonia. Review of Systems Review of Systems: CHILLS, ABDOMINAL PAIN PMFSH Past Medical History Medical History Healthy adult Leiomyoma Surgical History Surgical History History of hysterectomy (~03/2024) F
[2024-05-26] VITALS (8 sets, daily range): BP systolic 103–142; BP diastolic 57–66; PULSE 83–111; RESP 14–18; TEMP 36.9–38; O2SAT 95–100; BMI 40.8
[2024-05-26 00:10] LABS: MRSA (PCR) NOT DETECTED (NOT DETECTE)
[2024-05-26] MEDS: SODIUM CHLORIDE 0.9% IV 1,000 ML 999 ML IV CONT (00:40)
[2024-05-26] MEDS: VANCOMYCIN 1,250 MG/NS 250 ML 1,250 MG/250 ML BAG 166.67 MG IVPB (01:27)
[2024-05-26] MEDS: metroNIDAZOLE 500 MG/ISO 100ML 500 MG/100 ML BAG 100 MG IVPB ×3 (03:04→18:33)
[2024-05-26 05:30] LABS: Estimated CRCL calculation 69 ml/min; Estimated Glomerular Filt Rate 60
--- NOTE | 2024-05-26 07:21 | ADMGEN ---
This patient, Melody Looney, was admitted to 2 Medical Room 240-01. Patient/family oriented to hospital policies and general routines including ID bracelet, bed and alarms, visiting hours, pain management, procedures, bathroom and other care routines, personal items, smoking policy, room service/diet, and visiting hours. Information on how to activate the Rapid Response Team has been discussed. Patient/Family are encouraged to report perceived risks to care and to ask questions if they do not understand what they are told or what they should do.
[2024-05-26 07:52] LABS: Hematocrit 42.9 % (37.0-47.0); Hemoglobin 14.4 g/dL (12.0-15.0); Mean Corpuscular HGB Conc 33.6 g/dl (32-36); Mean Corpuscular Hemoglobin 30.5 pg (26-34); Mean Corpuscular Volume 90.9 fl (80-100); Mean Platelet Volume 10.8 fl (7.4-10.4); Platelet Count Result 171 k/mm3 (150-375); Red Blood Count 4.72 M/mm3 (4.2-5.4); Red Cell Distribution Width 13.5 % (11.5-14.5); White Blood Count 11.4 K/mm3 (4.5-10.0)
[2024-05-26 08:16] LABS: Band Neutrophils Percent 10 % (0-6); Lymphocytes Absolute Manual 1.25 K/mm3 (1.1-4.5); Lymphocytes Percent Manual 11 % (18-44); Monocytes Absolute Manual 1.48 K/mm3 (0.1-0.90); Monocytes Percent Manual 13 % (3-9); Neutrophils Absolute Manual 8.66 K/mm3 (1.7-7.2); Neutrophils Percent Manual 66 % (46-73); Platelet Estimate Adequate (Adequate); Total Cells Counted 100
[2024-05-26 08:17] LABS: Schistocytes None Seen
[2024-05-26 09:03] LABS: Alanine Aminotransferase 13 U/L (6-35); Albumin Level 3.2 g/dL (3.5-5.1); Alkaline Phosphatase 50 U/L (38-126); Anion Gap 9 mmol/L (4-12); Aspartate Amino Transferase 19 U/L (14-36); Bilirubin,Total 0.3 mg/dL (0.2-1.3); Blood Urea Nitrogen 12 mg/dL (7-17); Calcium 7.5 mg/dL (8.4-10.2); Carbon Dioxide 22 mmol/L (22-30); Chloride 103 mmol/L (98-107); Estimated CRCL calculation 69 ml/min; Estimated Glomerular Filt Rate 60; Glucose 131 mg/dL (65-110); Magnesium 1.7 mg/dL (1.6-2.3); Potassium 3.5 mmol/L (3.4-5.0); Sodium 134 mmol/L (137-145)
[2024-05-26 10:02] LABS: Toxigenic C. Diff NEGATIVE (NEGATIVE)
--- NOTE | 2024-05-26 11:26 | PM.IMPN ---
Progress Note: A&P Assessment and Plan (1) Sepsis: Code(s): A41.9 - Sepsis, unspecified organism Status: Acute Assessment and Plan: - WBC 11.4 - Patient is receiving IV Vancomycin 1,500 mg IVPB q 18 and Metronidazole 500 mg IVPB q8 - likely secondary to UTI - Blood cultures and urine culture pending. - Monitor labs. (2) Pancolitis: Code(s): K51.00 - Ulcerative (chronic) pancolitis without complications Status: Acute Assessment and Plan: - Patient is receiving IV Vancomycin 1,500 mg IVPB q 18 and Metronidazole 500 mg IVPB q8 - Check stool for C. Diff (3) UTI (urinary tract infection): Code(s): N39.0 - Urinary tract infection, site not specified Status: Acute Assessment and Plan: -Metronidazole 500 mg IVPB q8 -Monitor labs (4) Lung nodules: Code(s): R91.8 - Other nonspecific abnormal finding of lung field Status: Acute Assessment and Plan: - 05/25/2024 CTA showed: IMPRESSION: 1. No pulmonary embolism. 2. Colitis. 3. 11 mm part solid nodule with 4 mm solid component in the right middle lobe and additional 8 mm groundglass nodule at the junction of the left upper lobe and lingula. Recommend 3-6 month follow-up CT. Subjective Date/time seen: 05/26/24 11:26 Interval history: Patient denies chest pain, palpitations, shortness of breath, nausea, or vomiting. Patient reports pain in lower left abdomen that comes and goes, pain is a 9 , frequent, sharp, and aching. Patient reports diarrhea stools. Review of Systems Review of Systems: All systems reviewed & are unremarkable except as noted in HPI and below Exam Const: General: no acute distress Neck: Neck: supple Resp: Effort & Inspection: normal respiratory effort Auscultation: clear to auscultation bilaterally Cardio: Rate: regular rate Rhythm: regular rhythm Skin: General skin exam: no rashes or lesions noted Extrem: General: no pedal edema Psych: Affect: normal affect Objective Data Vital Signs Vital Signs: Vital Signs - 24 hr 05/25/24 19:31 05/25/24 20:37 05/25/24 20:38 Temperature 102.4 F H 98.0 F Pulse Rate 144 H 135 H 134 H Respiratory Rate 20 19 Blood Pressure 120/70 107/77 Pulse Oximetry 97 96 Oxygen Delivery Room Air Fraction of Inspired Oxygen 05/25/24 20:37 05/25/24 20:45 05/25/24 21:00 Temperature Pulse Rate 136 H 137 H 124 H Respiratory Rate 20 18 23 H Blood Pressure 107/77 114/79 113/71 Pulse Oximetry 95 96 97 Oxygen Delivery Fraction of Inspired Oxygen 05/25/24 21:20 05/25/24 21:30 05/25/24 22:56 Temperature 98.0 F Pulse Rate 116 H 115 H 96 Respiratory Rate 23 H 19 14 Blood Pressure 106/61 114/61 100/51 L Pulse Oximetry 95 92 96 Oxygen Delivery Fraction of Inspired Oxygen 05/25/24 23:01 05/26/24 01:16 05/26/24 00:51 Temperature 98.4 F Pulse Rate 95 111 H Respiratory Rate 14 18 Blood Pressure 104/51 L 142/66 H Pulse Oximetry 96 100 Oxygen Delivery Room Air Fraction of Inspired Oxygen 05/26/24 06:00 05/26/24 07:17 05/26/24 08:20 Temperature 100.4 F H Pulse Rate 106 H Respiratory Rate 18 18 Blood Pressure 103/57 L Pulse Oximetry 95 97 97 Oxygen Delivery Room Air Room Air Fraction of Inspired Oxygen 21 05/26/24 10:44 Temperature 98.8 F Pulse Rate Respiratory Rate Blood Pressure Pulse Oximetry Oxygen Delivery Fraction of Inspired Oxygen Intake/Output Intake/Output: Intake & Output 05/23/24 05/24/24 05/25/24 05/26/24 23:59 23:59 23:59 23:59 Intake Total 1050 1950 Output Total 3 Balance 1050 1947 Meds/Results Medications: Active Medications Generic Name Dose Route Start Last Admin Trade Name Freq PRN Reason Stop Dose Admin Acetaminophen 1,000 mg 05/26/24 02:13 Acetaminophen 500 Mg Tablet PO Q6H PRN Mild Pain (1-3) or Fever Al Hydrox/Mg Hydrox/Simethicone 30 ml 05/26/24 02:13 Mag Hydrox/Al Hydrox/Simeth 3
[2024-05-26] MEDS: cefTRIAXone 2 GM/NS 100 ML 2 GM/100 ML BAG IVPB (16:00)
[2024-05-27] MEDS: metroNIDAZOLE 500 MG/ISO 100ML 500 MG/100 ML BAG 100 MG IVPB ×3 (03:13→18:22)
[2024-05-27 05:55] LABS: Basophils Percent Auto 0.3 % (0.2-1.2); Eosinophils Absolute Auto 0.1 K/mm3 (0-0.3); Eosinophils Percent Auto 0.6 % (0-4.4); Hematocrit 39.6 % (37.0-47.0); Hemoglobin 13.2 g/dL (12.0-15.0); Immature Granulocyte Absolute 0.04 K/mm3 (0.00-0.031); Immature Granulocyte Percent A 0.4 % (0-0.5); Lymphocytes Absolute Auto 1.18 K/mm3 (0.9-3.2); Lymphocytes Percent Auto 12.6 % (18.3-44.2); Mean Corpuscular HGB Conc 33.3 g/dl (32-36); Mean Corpuscular Hemoglobin 30.2 pg (26-34); Mean Corpuscular Volume 90.6 fl (80-100); Mean Platelet Volume 10.4 fl (7.4-10.4); Monocytes Absolute Auto 0.9 K/mm3 (0.1-0.6); Monocytes Percent Auto 9.2 % (2.6-8.5); Neutrophils Absolute Auto 7.2 K/mm3 (1.3-6.7); Neutrophils Percent Auto 76.9 % (45.5-73.1); Platelet Count Result 150 k/mm3 (150-375); Red Blood Count 4.37 M/mm3 (4.2-5.4); Red Cell Distribution Width 13.4 % (11.5-14.5); White Blood Count 9.3 K/mm3 (4.5-10.0)
[2024-05-27 05:59] VITALS: BP 120/75; PULSE 65; RESP 18; TEMP 36.7; O2SAT 95
[2024-05-27 06:07] LABS: Alanine Aminotransferase 15 U/L (6-35); Albumin Level 3.3 g/dL (3.5-5.1); Alkaline Phosphatase 51 U/L (38-126); Anion Gap 6 mmol/L (4-12); Aspartate Amino Transferase 23 U/L (14-36); Bilirubin,Total 0.3 mg/dL (0.2-1.3); Blood Urea Nitrogen 12 mg/dL (7-17); Calcium 8.4 mg/dL (8.4-10.2); Carbon Dioxide 27 mmol/L (22-30); Chloride 101 mmol/L (98-107); Estimated CRCL calculation 96 ml/min; Estimated Glomerular Filt Rate > 60; Glucose 112 mg/dL (65-110); Magnesium 2.1 mg/dL (1.6-2.3); Potassium 3.9 mmol/L (3.4-5.0); Sodium 134 mmol/L (137-145)
[2024-05-27] MEDS: cefTRIAXone 2 GM/NS 100 ML 2 GM/100 ML BAG IVPB (08:11)
[2024-05-27 08:19] VITALS: RESP 18; O2SAT 95
[2024-05-27 13:00] VITALS: BP 135/66; PULSE 64; RESP 17; TEMP 36.6; O2SAT 100
--- NOTE | 2024-05-27 13:01 | PM.IMPN ---
Progress Note: A&P Assessment and Plan (1) Sepsis: Code(s): A41.9 - Sepsis, unspecified organism Status: Acute Assessment and Plan: - WBC improved from 11.4 to 9.3. - Patient is receiving IV Ceftriaxone 2 gm IVPB and Metronidazole 500 mg IVPB q8 - Blood cultures no growth to date - urine culture negative. - Monitor labs. (2) Pancolitis: Code(s): K51.00 - Ulcerative (chronic) pancolitis without complications Status: Acute Assessment and Plan: - Patient is receiving IV Ceftriaxone 2 gm ivpb daily and Metronidazole 500 mg IVPB q8 - Stool is negative for c.diff (3) UTI (urinary tract infection): Code(s): N39.0 - Urinary tract infection, site not specified Status: Acute Assessment and Plan: -Urine culture negative (4) Lung nodules: Code(s): R91.8 - Other nonspecific abnormal finding of lung field Status: Acute Assessment and Plan: - 05/25/2024 CTA showed: IMPRESSION: 1. No pulmonary embolism. 2. Colitis. 3. 11 mm part solid nodule with 4 mm solid component in the right middle lobe and additional 8 mm groundglass nodule at the junction of the left upper lobe and lingula. Recommend 3-6 month follow-up CT. - Discussed test results with patient and made patient aware of the need for follow up. Subjective Date/time seen: 05/27/24 13:01 Interval history: Patient reports pain in her abdomen is a 4 , sore, and constant. Patient denies chest pain, palpitations, shortness of breath, nausea, or vomiting. Patient reports that her stools are improving and becoming more formed. Review of Systems Review of Systems: All systems reviewed & are unremarkable except as noted in HPI and below Exam Const: General: comfortable and no acute distress Eyes: Sclera: sclerae normal Neck: Neck: supple Resp: Auscultation: clear to auscultation bilaterally Cardio: Rate: regular rate Rhythm: regular rhythm GI: GI Palp: Yes Soft to palpation Auscultation: normal bowel sounds Skin: General skin exam: no rashes or lesions noted Neuro: Speech: normal speech Extrem: General: normal to inspection Psych: Mental Status: mental status grossly normal Affect: normal affect Objective Data Vital Signs Vital Signs: Vital Signs - 24 hr 05/26/24 14:00 05/26/24 21:59 05/26/24 20:00 Temperature 99.1 F 98.5 F Pulse Rate 91 83 Respiratory Rate 14 18 Blood Pressure 138/66 124/61 Pulse Oximetry 99 98 Oxygen Delivery Room Air 05/26/24 21:10 05/27/24 05:59 05/27/24 08:19 Temperature 98.1 F Pulse Rate 65 Respiratory Rate 18 18 Blood Pressure 120/75 Pulse Oximetry 98 95 95 Oxygen Delivery Room Air Room Air Intake/Output Intake/Output: Intake & Output 05/24/24 05/25/24 05/26/24 05/27/24 23:59 23:59 23:59 23:59 Intake Total 1050 4070 780 Output Total 3 Balance 1050 4067 780 Meds/Results Medications: Active Medications Generic Name Dose Route Start Last Admin Trade Name Freq PRN Reason Stop Dose Admin Acetaminophen 1,000 mg 05/26/24 02:13 Acetaminophen 500 Mg Tablet PO Q6H PRN Mild Pain (1-3) or Fever Al Hydrox/Mg Hydrox/Simethicone 30 ml 05/26/24 02:13 Mag Hydrox/Al Hydrox/Simeth 30 Ml Udc PO Q6H PRN Indigestion Metronidazole 500 mg in 100 mls @ 100 mls/hr 05/26/24 03:00 05/27/24 11:32 Flagyl 500 Mg/Iso Soln 100 Ml IVPB Infused Q8H RIVERA Infusion Ceftriaxone Sodium 2 gm in 100 mls @ 200 mls/hr 05/26/24 15:30 05/27/24 08:40 Rocephin 2 Gm/Ns 100 Ml IVPB Infused DAILY RIVERA Infusion Ondansetron HCl 4 mg 05/26/24 02:13 Ondansetron Inj 4 Mg/2 Ml Vial IV PUSH Q6H PRN Nausea And Vomiting Polyethylene Glycol 17 gm 05/26/24 02:13 Polyethylene Glycol 3350 17 Gm Powd.Pack PO QAM PRN Constipation Radiology Results: ITS Impressions Chest X-Ray 05/25/24 20:54 IMPRESSION: 1. Opacities at the left lower lung zone suspicious fo
[2024-05-27 14:11] VITALS: PULSE 66; RESP 18; O2SAT 100
[2024-05-27 20:55] VITALS: BP 110/85; PULSE 64; RESP 20; TEMP 36.9; O2SAT 97
[2024-05-28] MEDS: metroNIDAZOLE 500 MG/ISO 100ML 500 MG/100 ML BAG 100 MG IVPB (03:00)
[2024-05-28 05:53] LABS: Basophils Percent Auto 0.8 % (0.2-1.2); Eosinophils Absolute Auto 0.1 K/mm3 (0-0.3); Eosinophils Percent Auto 1.7 % (0-4.4); Hematocrit 36.8 % (37.0-47.0); Hemoglobin 12.5 g/dL (12.0-15.0); Immature Granulocyte Absolute 0.04 K/mm3 (0.00-0.031); Immature Granulocyte Percent A 0.8 % (0-0.5); Lymphocytes Absolute Auto 1.53 K/mm3 (0.9-3.2); Lymphocytes Percent Auto 28.8 % (18.3-44.2); Mean Corpuscular Hemoglobin 30.5 pg (26-34); Mean Corpuscular Volume 89.8 fl (80-100); Mean Platelet Volume 10.2 fl (7.4-10.4); Monocytes Absolute Auto 0.6 K/mm3 (0.1-0.6); Monocytes Percent Auto 10.9 % (2.6-8.5); Platelet Count Result 161 k/mm3 (150-375); Red Cell Distribution Width 13.4 % (11.5-14.5); White Blood Count 5.3 K/mm3 (4.5-10.0)
[2024-05-28 06:00] VITALS: BP 120/53; PULSE 61; RESP 18; TEMP 36.8; O2SAT 98
[2024-05-28 06:06] LABS: Alanine Aminotransferase 15 U/L (6-35); Albumin Level 3.1 g/dL (3.5-5.1); Alkaline Phosphatase 46 U/L (38-126); Anion Gap 6 mmol/L (4-12); Aspartate Amino Transferase 21 U/L (14-36); Bilirubin,Total 0.1 mg/dL (0.2-1.3); Blood Urea Nitrogen 11 mg/dL (7-17); Calcium 8.3 mg/dL (8.4-10.2); Carbon Dioxide 27 mmol/L (22-30); Chloride 102 mmol/L (98-107); Estimated CRCL calculation 96 ml/min; Estimated Glomerular Filt Rate > 60; Glucose 86 mg/dL (65-110); Magnesium 1.9 mg/dL (1.6-2.3); Potassium 3.5 mmol/L (3.4-5.0); Sodium 135 mmol/L (137-145)
[2024-05-28] MEDS: cefTRIAXone 2 GM/NS 100 ML 2 GM/100 ML BAG IVPB (08:14)
[2024-05-28] MEDS: DOXYCYCLINE HYCLATE 100 MG TABLET PO (09:24)
--- NOTE | 2024-05-28 12:03 | PM.DS ---
DS: Admitting Diagnosis Discharge Date 05/28/24 Admitting Diagnosis Abdominal pain DS: Discharge Diagnosis Discharge Diagnosis (1) HAP (hospital-acquired pneumonia): Code(s): J18.9 - Pneumonia, unspecified organism; Y95 - Nosocomial condition Status: Acute (2) Pancolitis: Code(s): K51.00 - Ulcerative (chronic) pancolitis without complications Status: Acute DS: Summary Hospital Course Hospital Course: Patient admitted with abdominal pain. Patient had a history of a hysterectomy in March with rectal laceration and and intra-abdominal abscess and was hospitalized for 6 days with bacteremia. 05/25/24: Abdominal CT showed pancolitis. Chest X-ray showed: Opacities at the left lower lung zone suspicious for pneumonia. 05/25/2024 CTA showed: IMPRESSION: 1. No pulmonary embolism. 2. Colitis. 3. 11 mm part solid nodule with 4 mm solid component in the right middle lobe and additional 8 mm groundglass nodule at the junction of the left upper lobe and lingula. Recommend 3-6 month follow-up CT. Blood cultures no growth to date. Urine culture negative. White blood cells improved from 15.5 to 5.3. Patient improved and transitioned patient today to oral antibiotics. Status at Discharge Functional status at discharge: independent ambulation Overall status at discharge: patient is progressing back to baseline Time Spent with Patient Time attestation: Total time spent providing and/or coordinating discharge services: Time spent: Greater than 30 minutes Exam Const: General: comfortable and no acute distress HENMT: Mouth: Yes moist mucous membranes Eyes: Sclera: sclerae normal Neck: Neck: supple Resp: Auscultation: clear to auscultation bilaterally Cardio: Rate: regular rate Rhythm: regular rhythm GI: GI Palp: Yes Soft to palpation Auscultation: normal bowel sounds Other: slightly tender on sides of abdomen that patient relates to when she had dry heaves. : Other: voiding without difficulty. Skin: General skin exam: no rashes or lesions noted Neuro: General: gait normal Psych: Mental Status: mental status grossly normal Affect: normal affect DS: Data Data Completed and Pending Labs on day of discharge: Labs from last 24 hours 05/28/24 05:01 WBC 5.3 RBC 4.10 L Hgb 12.5 Hct 36.8 L MCV 89.8 MCH 30.5 MCHC 34.0 RDW 13.4 Plt Count 161 MPV 10.2 Immature Gran % (Auto) 0.8 H Neut % (Auto) 57.0 Lymph % (Auto) 28.8 Clarke % (Auto) 10.9 H Eos % (Auto) 1.7 Baso % (Auto) 0.8 Lymph # (Auto) 1.53 Clarke # (Auto) 0.6 Eos # (Auto) 0.1 Baso # (Auto) 0.0 Abs Immat Gran (auto) 0.04 H Absolute Neuts (auto) 3.0 Absolute Nucleated RBC 0.000 Nucleated RBC % 0.0 Sodium 135 L Potassium 3.5 Chloride 102 Carbon Dioxide 27 Anion Gap 6 BUN 11 Creatinine 0.70 Estim Creat Clear Calc 96 Estimated GFR > 60 Glucose 86 Calcium 8.3 L Magnesium 1.9 Total Bilirubin 0.1 L AST 21 ALT 15 Alkaline Phosphatase 46 Total Protein 6.0 L Albumin 3.1 L Preliminary micro results at discharge 05/25/24 21:57 Blood Culture - Preliminary Blood 05/25/24 21:57 Blood Culture - Preliminary Blood Discharge Plan Discharge Attending physician on discharge: Lito Neil Discharging Clinician: Tamica Raya Anticipated Discharge Date/Time: 05/28/24 13:00 Patient Disposition: Home, Self-Care Activity: december shower Diet: regular Discharge Instructions: - Recommend follow up chest CT in 3-6 months. - Report any increased shortness of breath, sputum with color, worsening cough, or fever to provider. - Report any abdominal pain or blood in your stool. Patient Instructions: Antibiotic Form, Irritable Bowel Syndrome (DC), Pain Management (DC), Pneumonia (DC) Stand Alone Forms: General Discharge Information Follow-up/Referrals: Kurt,Arron Angel, LOGISTICS MANAGEMENT SPECIALIST [Primary Care Provider] - 1 Week Discharge Medications: New doxycyc
== END 2024-05-28 13:40 | disposition home or self-care (01) | DRG 871 ==
LOC: ANHED 21:38 → ANH2MED 05-26 00:26
PROVIDERS: Admitting Provider Internal Medicine; Emergency Provider Emergency Medicine; PCP Nurse Practitioner Family; Visit Provider Nurse Practitioner Family
DX: A41.9 Sepsis, unspecified organism (principal); J18.9 Pneumonia, unspecified organism; K51.00 Ulcerative (chronic) pancolitis without complications; N39.0 Urinary tract infection, site not specified; Y95 Nosocomial condition; E66.9 Obesity, unspecified; R91.8 Other nonspecific abnormal finding of lung field; Z90.710 Acquired absence of both cervix and uterus; Z20.822 Contact with and (suspected) exposure to COVID-19
CPT/HCPCS: 36415; 71045; 71275; 74177; 80053; 81001; 82248; 82565; 83605; 83690; 83735; 84703; 85025; 87040; 87086; 87088; 87493; 87636; 87641; 93005; 96361; 96365; 96375; 99285; A9270; J0692; J0696; J1836; J2405; J3370; J3475; J7030; Q9967

== ENCOUNTER 2024-06-25 15:12 | Outpatient (CLI) | payer OTHER, SELFPAY ==
--- NOTE | ~2024-06-25 | XR_ITS ---
EXAMINATION: XR chest 2V 06/25/2024 15:23 INDICATION: History of pneumonia PROCEDURE: 2 view chest COMPARISON: 05/25/2024 FINDINGS: The lungs are clear. The cardiomediastinal silhouette is within normal limits. There are no pleural effusions. There is no pneumothorax suspected. IMPRESSION: 1: NO ACUTE CARDIOPULMONARY DISEASE. Reviewed, dictated and finalized at location B.
== END 2024-06-25 15:13 | disposition home or self-care (01) ==
LOC: MICIMG 15:14
PROVIDERS: PCP Nurse Practitioner Family; Visit Provider Nurse Practitioner Family
DX: Z87.01 Personal history of pneumonia (recurrent) (principal)
CPT/HCPCS: 71046

== ENCOUNTER 2024-07-23 15:20 | Outpatient (CLI) | payer OTHER, SELFPAY ==
--- NOTE | ~2024-07-23 | CT_ITS ---
EXAMINATION:CT diagnostic chest wo con DATE: 07/23/2024 15:59 INDICATION: Pulmonary nodule. TECHNIQUE: Computed tomography (CT) of the chest was performed without intravenous contrast. Automate d exposure control and iterative reconstruction technique were employed. The dose-length product (DLP ) was 291.58 mGy-cm. COMPARISON: Chest CT 05/25/2024 FINDINGS: The nodules described on the prior chest CT have resolved. There is no pneumonia or pleural effusion. The heart size is normal. No pericardial effusion. There is mild thoracic spondylosis. IMPRESSION: 1. Normal lungs. Reviewed, dictated and finalized at location A. SHAPER IMPRESSION: 1. Normal lungs.
== END 2024-07-23 15:21 | disposition home or self-care (01) ==
PROVIDERS: PCP Nurse Practitioner Family; Visit Provider Nurse Practitioner Family
DX: R91.1 Solitary pulmonary nodule (principal); Z87.01 Personal history of pneumonia (recurrent)
CPT/HCPCS: 71250